=== PATIENT | female | born 1990 | race Caucasian/White ===

== ENCOUNTER → 2020-03-17 12:23 | Outpatient (BNVA) | payer OTHER, SELFPAY | PROVIDERS: PCP Family Medicine; Referring Provider Family Medicine; Visit Provider Obstetrics & Gynecology | DX: Z30.09 Encounter for other general counseling and advice on contraception (principal); Z97.5 Presence of (intrauterine) contraceptive device | CPT/HCPCS: 99212 ==

== ENCOUNTER 2020-04-16 13:36 | Outpatient (REF) | payer OTHER, SELFPAY ==
[2020-04-17 14:18] LABS: CT PCR NOT DETECTED (Not Detect.); NG PCR NOT DETECTED (Not Detect.)
[2020-04-19 09:42] LABS: BV Int Neg Control Negative (Negative); BV Int Pos Control Positive (Positive)
== END 2020-04-16 13:37 | disposition home or self-care (01) ==
LOC: HO.LAB 13:36
PROVIDERS: Visit Provider Obstetrics & Gynecology
DX: T83.32XA Displacement of intrauterine contraceptive device, initial encounter (principal); Z53.8 Procedure and treatment not carried out for other reasons
CPT/HCPCS: 87480; 87491; 87510; 87591; 87660; 99212

== ENCOUNTER 2020-04-20 14:24 | Outpatient (REF) | payer OTHER, SELFPAY ==
--- NOTE | 2020-04-20 14:29 | US_ITS ---
EXAMINATION: PELVIC ULTRASOUND CLINICAL INFORMATION: ENCOUNTER FOR REMOVAL OF IUD COMPARISON: None TECHNIQUE: Transabdominal and transvaginal pelvic ultrasound was performed. Transvaginal exam was performed for better visualization of the IUD. FINDINGS: Uterus is anteverted and measures 8.5 x 3.5 x 4.7 cm in dimension. There is an IUD in the uterus. This appears in satisfactory position however the IUD appears abnormal in shape questionable for a broken IUD or bent or angulated IUD. Follow-up pelvic x-ray is recommended. The endometrium does not appear thickened. No focal uterine lesion is seen. The ovaries are normal-appearing. The right ovary measures 3.1 x 2.4 x 2.1 cm and the left ovary measures 3 x 1.9 x 1.5 cm. There is no fluid in the pelvis. US/US pelvic complete IMPRESSION: IUD in the uterus. The IUD appears abnormal in shape questionable for a broken or bent or angulated IUD. Follow-up pelvic x-ray recommended.
--- NOTE | 2020-04-20 14:29 | US_ITS ---
EXAMINATION: PELVIC ULTRASOUND CLINICAL INFORMATION: ENCOUNTER FOR REMOVAL OF IUD COMPARISON: None TECHNIQUE: Transabdominal and transvaginal pelvic ultrasound was performed. Transvaginal exam was performed for better visualization of the IUD. FINDINGS: Uterus is anteverted and measures 8.5 x 3.5 x 4.7 cm in dimension. There is an IUD in the uterus. This appears in satisfactory position however the IUD appears abnormal in shape questionable for a broken IUD or bent or angulated IUD. Follow-up pelvic x-ray is recommended. The endometrium does not appear thickened. No focal uterine lesion is seen. The ovaries are normal-appearing. The right ovary measures 3.1 x 2.4 x 2.1 cm and the left ovary measures 3 x 1.9 x 1.5 cm. There is no fluid in the pelvis. US/US transvaginal IMPRESSION: IUD in the uterus. The IUD appears abnormal in shape questionable for a broken or bent or angulated IUD. Follow-up pelvic x-ray recommended.
== END 2020-04-20 14:25 | disposition home or self-care (01) ==
LOC: HO.US 14:24
PROVIDERS: Visit Provider Obstetrics & Gynecology
DX: Z30.432 Encounter for removal of intrauterine contraceptive device (principal); T83.32XA Displacement of intrauterine contraceptive device, initial encounter
CPT/HCPCS: 76830; 76856

== ENCOUNTER 2020-05-03 11:11 | Outpatient (REF) | payer OTHER, SELFPAY | END 2020-05-03 11:12 | disposition home or self-care (01) | LOC: HO.LAB 11:11 | PROVIDERS: Visit Provider Obstetrics & Gynecology | DX: T83.32XA Displacement of intrauterine contraceptive device, initial encounter (principal) | CPT/HCPCS: 88142; 99212 ==

== ENCOUNTER → 2020-05-17 11:06 | Outpatient (BNVA) | payer OTHER, SELFPAY | PROVIDERS: Visit Provider Obstetrics & Gynecology | DX: T83.32XD Displacement of intrauterine contraceptive device, subsequent encounter (principal) | CPT/HCPCS: 99212 ==

== ENCOUNTER → 2020-07-06 13:46 | Outpatient (BNVA) | payer OTHER, SELFPAY | PROVIDERS: PCP Internal Medicine; Visit Provider Obstetrics & Gynecology | DX: T83.32XD Displacement of intrauterine contraceptive device, subsequent encounter (principal) | CPT/HCPCS: 99212 ==

== ENCOUNTER 2020-07-08 07:09 | Day surgery (SDC) | payer OTHER, SELFPAY ==
[2020-05-20 19:50] VITALS: BMI 56.7
--- NOTE | 2020-05-26 11:34 | HO.ANESPROP2 ---
HPI - Anesthesia Eval Consult details Narrative: 29yo F for Hysteroscopy, IUD removal PMFSH Past Medical History Medical History Anxiety and depression Back pain History of gestational diabetes Mild intermittent asthma Obesity Family History Family History Mother Asthma Breast cancer Surgical History Surgical History Hx of section Social History Social History Alcohol intake: never Smoking Status: Never smoker Second Hand Smoke Exposure: No Sexual orientation: Straight/Heterosexual Gender identity: female Meds Allergies Allergy/AdvReac Type Severity Reaction Status Date / Time vancomycin [VANCOMYCIN] Allergy Mild ITCHING Verified 05/17/20 11:12 penicillin V Allergy Unknown rash Verified 05/17/20 11:12 Penicillins [PENICILLINS] Allergy Unknown HIVES Verified 05/17/20 11:12 Home Medications Medication Instructions Recorded Confirmed Type copper 380 square mm intrauterine INTRAUTERINE 03/17/20 03/17/20 History device Exam Exam Date and Time: May 26, 2020 1134 Height,Weight and Vital Signs: Height 5 ft 1 in Weight 136.078 kg Assessment and Plan Assessment Anesthesia Assessment: Chart Reviewed
--- NOTE | 2020-07-07 09:19 | HO.ANESPROP2 ---
Documented by User: Bev Hall 07/07/20 09:20 HPI - Anesthesia Eval Consult details Narrative: 29yo F for Hysteroscopy, IUD removal PMFSH Past Medical History Medical History Anxiety and depression Back pain History of gestational diabetes Mild intermittent asthma Obesity Family History Family History Mother Asthma Breast cancer Surgical History Surgical History Hx of section Social History Social History Alcohol intake: never Smoking Status: Never smoker Second Hand Smoke Exposure: No Use of substances other than those prescribed or required for medical reasons: No Advance Directives: No Advance Directives Information Provided: No Advance Directives on File: No Recently lost weight without trying: No Sexual orientation: Straight/Heterosexual Gender identity: female Meds Allergies Allergy/AdvReac Type Severity Reaction Status Date / Time vancomycin [VANCOMYCIN] Allergy Mild ITCHING Verified 07/06/20 14:02 penicillin V Allergy Unknown rash Verified 07/06/20 14:02 Penicillins [PENICILLINS] Allergy Unknown HIVES Verified 07/06/20 14:02 Exam Exam Date and Time: July 07, 2020 0919 Height,Weight and Vital Signs: Height 5 ft 1 in Weight 136.078 kg Assessment and Plan Assessment Anesthesia Assessment: Chart Reviewed Documented by User: Karla Peng 07/08/20 08:46 PMFSH Past Medical History Medical History Anxiety and depression Back pain History of gestational diabetes Mild intermittent asthma Obesity Family History Family History Mother Asthma Breast cancer Surgical History Surgical History Hx of section Social History Social History Alcohol intake: never Smoking Status: Never smoker Second Hand Smoke Exposure: No Use of substances other than those prescribed or required for medical reasons: No Advance Directives: No Advance Directives Information Provided: No Advance Directives on File: No Recently lost weight without trying: No Sexual orientation: Straight/Heterosexual Gender identity: female Meds Allergies Allergy/AdvReac Type Severity Reaction Status Date / Time vancomycin [VANCOMYCIN] Allergy Mild ITCHING Verified 07/06/20 14:02 penicillin V Allergy Unknown rash Verified 07/06/20 14:02 Penicillins [PENICILLINS] Allergy Unknown HIVES Verified 07/06/20 14:02 Exam Airway Mallampati Class: II TM Dist: >3cm Neck ROM: Full Assessment and Plan Assessment Anesthesia Assessment: Anesthesia Plan Discussed and Chart Reviewed Final Anesthetic Review NPO: Yes ASA Class: III Final Preanesthetic Review: No Changes in Pt Med Stat, Meds/Allgs Chart Reviewed, Consent Obtained/Reviewed and Anes Risks/Benef Reviewed Patient Risk: Intermediate Procedure Risk: Low Anesthetic Plan Anesthetic Plan: MAC: Disposition: Standard PACU
[2020-07-08] VITALS (8 sets, daily range): BP systolic 111–143; BP diastolic 61–98; PULSE 75–94; RESP 16–18; TEMP 36.3–36.5; O2SAT 90–98
[2020-07-08 08:11] LABS: UPreg QC Valid YES; Urine Pregnancy NEGATIVE (NEGATIVE)
[2020-07-08] MEDS: Lactated Ringers 1,000 ML 100 ML IVCONT (08:19)
--- NOTE | 2020-07-08 08:43 | MHC.SHP ---
Pre-Procedural Eval Section A The patient is an INPATIENT: No Changes since office visit: No Cold of Flu in the past 2 weeks, No New Medical Problems, No Changes in Medication and No Patient answered all questions The History & Physical has been completed within 30 days and I have reviewed it.: Yes Section B Chief Complaint: IUD string lost Allergies: Allergies Allergy/AdvReac Type Severity Reaction Status Date / Time vancomycin [VANCOMYCIN] Allergy Mild ITCHING Verified 07/06/20 14:02 penicillin V Allergy Unknown rash Verified 07/06/20 14:02 Penicillins [PENICILLINS] Allergy Unknown HIVES Verified 07/06/20 14:02 Plan I have reviewed the history and physical and performed a pertinent physical examination on my patient. No changes have occurred unless specified.
--- NOTE | 2020-07-08 09:41 | W.PM.OPN ---
Operative Note Operative Note Date of Service: 07/08/20 Narrative: Ms. Benedict Dixon is a 29 year old with a Paragard IUD in place (confirmed by ultrasound) with missing strings. She presents today for hysteroscopic IUD removal. Surgical Risks: The patient was informed of the risks and benefits of a hysteroscopy with dilation and curettage. Risks included but were not limited to bleeding, infection, injury to the vulva, vagina, or cervix, and uterine perforation with possible need for further surgery. The patient expressed understanding of the risks involved, all questions were answered, and the patient consented to the procedure. The patient was taken to the operating room where a time out was confirmed to confirm correct patient and correct procedure. Adequate general anesthesia was established. The patient was then positioned on the operating table in the dorsal lithotomy position with her legs supported using stirrups. All pressure points were padded and a warm blanket was placed to maintain control of core body temperature. The patient was then prepped and draped in the usual sterile fashion. A bivalve speculum was then inserted into the vagina. The anterior lip of the cervix was visualized and grasped using a single tooth tenaculum. The cervix was adequately dilated using Garza dilators for the introduction of the hysteroscope. The hysteroscope was introduced under direct visualization using normal saline solution as the distending media. The hysteroscope was advanced and the Paragard IUD was visualized in the cavity with the strings curled around it, entirely within the uterine cavity. An operative hysteroscope was not available in the room and so the hysteroscope was removed and forceps were introduced through the cervix, used to grasp the IUD by the strings and the IUD was removed intact with gentle traction. The single-tooth tenaculum was removed from the anterior lip of the cervix and hemostasis was also noted at the tenaculum puncture sites. The speculum was then removed from the vagina. At the end of the procedure, all needle, sponge, and instrument counts were noted to be correct x2. The patient was transferred to the recovery room in stable condition.
--- NOTE | 2020-07-08 11:11 | HO.POSTANES ---
Post Anesthesia Evaluation Post Anesthesia Evaluation Vital Signs: Vital Signs Temp Pulse Resp BP Pulse Ox 07/08/20 10:38 97.3 F 75 16 114/73 97 07/08/20 10:23 82 18 117/82 97 07/08/20 10:08 81 18 114/62 98 07/08/20 09:53 79 16 111/61 98 07/08/20 09:48 76 18 131/73 96 07/08/20 09:43 85 18 116/66 90 L 07/08/20 09:38 97.3 F 94 16 115/69 94 07/08/20 08:08 97.7 F 81 18 143/98 H 98 Anesthesia: Monitored Mental Status: Awake Pain Control: Satisfactory Nausea/Vomiting: None Hydration: Adequate Anesthesia-Related Issues: No Anes. Related Issues
== END 2020-07-08 11:13 | disposition home or self-care (01) ==
LOC: HO.SSS 07:10
PROVIDERS: Nurse Practitioner; Visit Provider Obstetrics & Gynecology
PROC: 0UDB8ZX Extraction of Endometrium, Via Natural or Artificial Opening Endoscopic, Diagnostic (ICD-10-PCS; CPT 58558; principal; 2020-07-08 08:40)
DX: T83.32XA Displacement of intrauterine contraceptive device, initial encounter (principal); Y76.8 Miscellaneous obstetric and gynecological devices associated with adverse incidents, not elsewhere classified; Y92.9 Unspecified place or not applicable; J45.20 Mild intermittent asthma, uncomplicated; F32.9 Major depressive disorder, single episode, unspecified
CPT/HCPCS: 58301; 81025; J2250; J2405; J3010

== ENCOUNTER → 2020-07-21 11:21 | Outpatient (BNVA) | payer OTHER, SELFPAY | PROVIDERS: Visit Provider Obstetrics & Gynecology ==

== ENCOUNTER 2020-12-02 14:06 | Outpatient (REF) | payer OTHER, SELFPAY ==
--- NOTE | ~2020-12-02 | US_ITS ---
EXAMINATION: US OBSTETRICAL ULTRASOUND CLINICAL INFORMATION: N92.6 - Irregular menstruation, unspecified COMPARISON: None. LMP: Unknown. TECHNIQUE: Ultrasound of the maternal pelvis is performed using transabdominal and transvaginal transducers. Transvaginal imaging is performed due to inadequate visualization transabdominally. M-mode Doppler is also performed. Results initially reported on day of exam. FINDINGS: There is a single intrauterine gestational sac with visible yolk sac, embryo/fetus, and cardiac activity. There is small subchorionic hemorrhage lower aspect measuring only 1.2 x 0.6 x 0.3 cm. HR: 116 beats per minute. CRL (crown rump length): 0.30 cm (6 weeks 0 days +/- 4 days). KARYNA (estimated date of delivery): 07/28/2021 +/- 4 days. MATERNAL ADNEXA: The right maternal ovary measures 2.1 x 1.7 x 2.0 cm. The left maternal ovary measures 1.9 x 1.5 x 1.7 cm. There is no maternal adnexal mass. No maternal pelvic ascites. US/US OB pelvic and transvaginal IMPRESSION: 1. Single intrauterine gestation with ultrasound gestational age of 6 weeks 0 days +/- 4 days. 2. Estimated date of delivery is 07/28/2021 +/- 4 days. 3. Small subchorionic hemorrhage lower aspect only 1.2 x 0.6 x 0.3 cm. 4. No maternal adnexal mass or pelvic ascites.
[2020-12-02 17:26] LABS: HCG Quantitative 24908 mIU/mL
== END 2020-12-02 14:07 | disposition home or self-care (01) ==
LOC: HO.US 14:06
PROVIDERS: Visit Provider Advanced Practice Midwife
DX: N92.6 Irregular menstruation, unspecified (principal); E66.8 Other obesity; Z68.43 Body mass index [BMI] 50.0-59.9, adult
CPT/HCPCS: 36415; 76801; 76817; 81025; 84702; 99212

== ENCOUNTER 2022-07-29 09:53 | Emergency (ER) | payer OTHER, SELFPAY ==
[2022-07-29 10:16] VITALS: BP 103/69; PULSE 118; TEMP 37.5; O2SAT 97
[2022-07-29 11:00] VITALS: BP 103/69; PULSE 118; RESP 16; TEMP 37.5; O2SAT 97; BMI 56.7
[2022-07-29 11:35] LABS: COVID-19 Test Negative (Negative); IDNOW Serial# 6674DD1D
[2022-07-29 11:38] LABS: IDNOW Serial# BCCEAD1C; Influenza A Negative (Negative); Influenza B2 Negative (Negative)
[2022-07-29 11:50] LABS: IDNOW Serial# 6674DD1D; Strep A Nucleic Acid Positive (Negative)
--- NOTE | 2022-07-29 12:22 | PC.NURSE ---
PT WAS SEEN AND DISCHARGED BY PROVIDER
--- NOTE | 2022-07-29 18:31 | ED.URI ---
HPI - URI/Sore Throat General Chief Complaint: Upper Respiratory Symptoms Stated Complaint: sore throat fever ear pain Time Seen by Provider: 07/29/22 10:16 History of Present Illness HPI Narrative: Patient complains of a sore throat for several days, her son had a sore throat before her, she does not have a runny nose or a cough, she may have had fever as she has felt warm intermittently, she has had some intermittent body aches, no headache no stiff neck, it hurts to swallow but she has no difficulty swallowing she has no drooling, she has no chest pain no cough no sputum no shortness of breath no abdominal pain no nausea vomiting or diarrhea no dysuria no frequency no skin rash Related Data Previous Rx's Medication Instructions Recorded prenat.vits,david,[id number] 1 tab PO DAILY plann #90 tabs 03/17/20 acetaminophen 325 mg capsule 650 mg PO Q4H PRN pain #120 caps 07/07/20 ibuprofen 800 mg tablet 800 mg PO Q8H #60 tabs 07/07/20 ferrous sulfate 325 mg (65 mg 325 mg PO BID #120 tabs 07/21/20 iron) tablet acetaminophen 500 mg capsule 1,000 mg PO Q8H PRN fever or pain 07/29/22 #20 caps azithromycin 250 mg tablet See Rx Instructions PO .COMPLEX #6 07/29/22 (Zithromax Z-Romel) tabs ibuprofen 600 mg tablet 600 mg PO Q6H PRN fever or pain 07/29/22 #20 tabs Allergies Allergy/AdvReac Type Severity Reaction Status Date / Time vancomycin [VANCOMYCIN] Allergy Mild ITCHING Verified 12/02/20 14:34 penicillin V Allergy Unknown rash Verified 12/02/20 14:34 Penicillins [PENICILLINS] Allergy Unknown HIVES Verified 12/02/20 14:34 PMFSH Past Medical History Source: nursing notes reviewed Medical History Anxiety and depression Back pain Extreme obesity History of gestational diabetes Mild intermittent asthma Missed menses Obesity Surgical History Hx of section Family History Family History Mother Asthma Breast cancer Social History Social History Alcohol intake: never Second Hand Smoke Exposure: No Advance Directives: No Advance Directives Information Provided: No Sexual orientation: Straight/Heterosexual Gender identity: Female Physical Exam Vital Signs: Vital Signs: Last Vital Signs Temp 99.5 F 07/29/22 11:00 Pulse 118 H 07/29/22 11:00 Resp 16 07/29/22 11:00 BP 103/69 07/29/22 11:00 Pulse Ox 97 07/29/22 11:00 O2 Del Method 07/29/22 11:00 BMI result Body Mass Index 56.7 Pulse of 118 it is noted when I recheck it was 108 General appearance no acute distress comfortable and cooperative The ears are normal with normal tympanic membranes no redness of the membranes, they are intact, canals are patent without any debris or narrowing Eyes no redness or discharge The nose no sinus tenderness The pharynx there is redness, no exudate, mild bilateral symmetric tonsillar swelling, uvula is midline, voice is normal, no drooling, mucous membranes are moist Neck is supple Chest is clear with symmetric equal full breath sounds Heart no murmur Extremities full range of motion x4 Skin no rashes Course Course Course Narrative: Patient was positive for strep, negative for COVID or flu She is treated with steroid and antibiotic, we used Zithromax as she is allergic to penicillin and well-appearing patient tolerating p.o. is discharged Medical Decision Making Lab Data Labs: Lab Results 07/29/22 07/29/22 07/29/22 Range/Units 10:38 10:38 10:38 COVID-19 (BRIANNA) Negative (Negative) COVID-19 Clin Com See Note Influenza Type A (HENRIQUE) Negative (Negative) Influenza Type B (HENRIQUE) Negative (Negative) Influenza A & B Note See Note S. pyogenes GrpA HENRIQUE Positive A (Negative) Discharge Plan Discharge Clinical Impression: Acute streptococcal pharyngitis Patient Disposition: Home, Self-Care Additional Instructions: COVID and flu tests were negative but strep test was positive for both you and your son We are using antibiotic Zithromax You got 1 dose of steroid Decadron which is often very helpful in relieving symptoms within 24 hours Use Tylenol and Motrin as needed Drink plenty of fluids, breathing steam sometimes helps to soothe the throat, warm liquids with honey are often helpful Return any time for dehydration any worse condition or any concerns Prescriptions: New azithromycin [Zithromax Z-Romel] 250 mg tablet See Rx Instructions .ROUTE .COMPLEX Qty: 6 0RF Rx Instructions: For 250 mg dose pack: take 500 mg today (day 1), then 250 mg for 4 days (days 2-5) ibuprofen 600 mg tablet 600 mg PO Q6H PRN (Reason: fever or pain) Qty: 20 0RF acetaminophen 500 mg capsule 1,000 mg PO Q8H PRN (Reason: fever or pain) Qty: 20 0RF No Action ibuprofen 800 mg tablet 800 mg PO Q8H Qty: 60 1RF acetaminophen 325 mg capsule 650 mg PO Q4H PRN (Reason: pain) Qty: 120 0RF Rx Instructions: Take four hours after ibuprofen and continue alternating ferrous sulfate 325 mg (65 mg iron) tablet 325 mg PO BID Qty: 120 3RF prenat.vits,david,jry-[id number] Tablet 1 tab PO DAILY Qty: 90 3RF Discharge Date/Time: 07/29/22 12:20
== END 2022-07-29 12:20 | disposition home or self-care (01) ==
PROVIDERS: Physician Assistant Medical; Emergency Provider Emergency Medicine
DX: J02.0 Streptococcal pharyngitis (principal); Z20.822 Contact with and (suspected) exposure to COVID-19
CPT/HCPCS: 87502; 87635; 87651; 99282; 99283

== ENCOUNTER 2023-10-13 13:54 | Inpatient (IN) | payer OTHER, SELFPAY ==
[2023-10-13] VITALS (8 sets, daily range): BP systolic 134–180; BP diastolic 77–98; PULSE 109–119; RESP 16–32; TEMP 36.6–39.5; O2SAT 91–96; BMI 75.6
--- NOTE | ~2023-10-13 | CT_ITS ---
EXAMINATION: CT ANGIOGRAM OF THE CHEST WITH AND WITHOUT CONTRAST (CT PULMONARY ANGIOGRAM FOR PE) CLINICAL INFORMATION: Reason for Exam hypoxic, tachycardic, SOB COMPARISON: None available. TECHNIQUE: Prior to contrast administration, noncontrast localization images were obtained. Subsequently, multidetector volumetric imaging was performed from the thoracic inlet to below the diaphragms following the administration of 70 mL Omnipaque 350 intravenous contrast. No contrast reaction reported Sagittal, coronal, and MIP oblique sagittal reformatted images were obtained on the CT workstation, uploaded to PACS, and reviewed. This CT examination was performed using dose optimization techniques as appropriate, variously including the following: *Automated exposure control *Adjustment of mA and/or kV according to patient size (this includes techniques or standardized protocols for targeted exams where dose is matched to indication/reason for exam; i.e. extremities or head) *Use of iterative reconstruction technique Total exam dose-length product 556 mGy-cm FINDINGS: QUALITY OF STUDY/CONTRAST BOLUS: Satisfactory. PULMONARY ARTERIES: No pulmonary emboli through the segmental pulmonary arteries. THORACIC AORTA: No aneurysm. LUNG: Central airways patent. Moderate diffuse bronchial wall thickening. Areas of clustered tree-in-bud centrilobular nodularity involving all lobes, most pronounced in the posterior left upper lobe and basilar left lower lobe, where there are patchy areas of more confluent consolidation (series 7, images 168, 329). No dominant, suspicious pulmonary nodules identified. PLEURA: No pleural effusion or pneumothorax. MEDIASTINUM: Normal heart size. No pericardial effusion. Prominent but nonenlarged left lower hilar lymph nodes, measuring up to 1.0 cm in short axis (series 7, image 209), likely reactive. No mediastinal lymphadenopathy. Ovoid, hazy, well-circumscribed fat attenuation structure along the left upper mediastinum abutting the main pulmonary artery, measuring 4.1 x 2.0 x 4.8 cm (series 7, image 137; series 8, image 28). No evidence of septal bowing or right heart strain. CORONARY ARTERY CALCIFICATION: None visualized on this study. CHEST WALL/AXILLA: No axillary or internal mammary lymphadenopathy. OSSEOUS STRUCTURES: No acute or suspicious osseous abnormality. UPPER ABDOMEN: Diffuse hepatic steatosis. Visualized upper abdomen otherwise unremarkable. No reflux of contrast into the hepatic veins to suggest elevated right heart pressures. CT/CT angio chest PE protocol IMPRESSION: 1. No pulmonary emboli through the segmental pulmonary arteries. 2. Findings compatible with multifocal bronchopneumonia/infectious bronchiolitis involving all lobes though most pronounced in the posterior left upper and basilar left lower lobes. 3. Well-circumscribed fat attenuation structure measuring 4.8 cm in the left upper mediastinum, may represent thymic rebound though recommend MRI chest with and without contrast in 3 months after acute illness to assess change and further characterize. 4. Prominent left lower hilar lymph nodes, likely reactive. 5. Diffuse hepatic steatosis. VTE: negative.
--- NOTE | ~2023-10-13 | XR_ITS ---
EXAMINATION: XR CHEST CLINICAL INFORMATION: Cough. Shortness of breath. COMPARISON: None available. TECHNIQUE: 2 views of the chest were obtained. FINDINGS: The cardiac silhouette is slightly enlarged. There is prominence of the left pulmonary hilum and AP window region questionable for lymphadenopathy. There or increased bilateral perihilar markings and airspace disease. No pleural effusion or pneumothorax. Bony structures are unremarkable. XR/XR chest 2V IMPRESSION: Enlarged cardiac silhouette and bilateral perihilar airspace disease. Differential would include pneumonia and pulmonary edema. Prominence of the left pulmonary hilum and AP window region, question lymphadenopathy. Imaging follow-up recommended.
--- NOTE | ~2023-10-13 | CT_ITS ---
EXAMINATION: CT ANGIOGRAM OF THE CHEST WITH AND WITHOUT CONTRAST (CT PULMONARY ANGIOGRAM FOR PE) CLINICAL INFORMATION: Reason for Exam SOB COMPARISON: CTA from 10/13/2023 TECHNIQUE: Prior to contrast administration, noncontrast localization images were obtained. Subsequently, multidetector volumetric imaging was performed from the thoracic inlet to below the diaphragms following the administration of 70 mL Omnipaque 350 intravenous contrast. No contrast reaction reported Sagittal, coronal, and MIP oblique sagittal reformatted images were obtained on the CT workstation, uploaded to PACS, and reviewed. This CT examination was performed using dose optimization techniques as appropriate, variously including the following: *Automated exposure control *Adjustment of mA and/or kV according to patient size (this includes techniques or standardized protocols for targeted exams where dose is matched to indication/reason for exam; i.e. extremities or head) *Use of iterative reconstruction technique Total exam dose-length product 263 mGy-cm FINDINGS: QUALITY OF STUDY/CONTRAST BOLUS: Suboptimal. PULMONARY ARTERIES: No pulmonary emboli within the central main pulmonary arteries bilaterally. Evaluation in the segmental and subsegmental branches is limited due to quality of the bolus, motion artifact and body habitus.. THORACIC AORTA: No aneurysm. LUNG: Diffuse areas of patchy airspace consolidation seen in the bilateral upper lobes and bilateral lower lobes consistent with multifocal pneumonia. Findings have slightly increased compared to the prior exam PLEURA: No pleural effusion or pneumothorax. MEDIASTINUM: Normal heart size. No pericardial effusion. No hilar or mediastinal lymphadenopathy. No evidence of septal bowing or right heart strain. Within the prevascular space in the anterior and superior mediastinum, there is a well-defined ovoid simple fluid density cyst measuring 3.7 x 2.4 cm most consistent with a pericardial cyst. This is unchanged compared to the prior exam. CORONARY ARTERY CALCIFICATION: None visualized on this study. CHEST WALL/AXILLA: No axillary or internal mammary lymphadenopathy. OSSEOUS STRUCTURES: No acute or suspicious osseous abnormality. UPPER ABDOMEN: Unremarkable. No reflux of contrast into the hepatic veins to suggest elevated right heart pressures. CT/CT angio chest PE protocol IMPRESSION: 1. No central main pulmonary artery emboli. Evaluation of the segmental and subsegmental branches is limited due to quality of the bolus, motion artifact and body habitus. 2. Multifocal pneumonia. Slight interval worsening 3. Pericardial cyst. Stable VTE: negative.
--- NOTE | 2023-10-13 14:04 | ED.URI ---
HPI - URI/Sore Throat General Chief Complaint: General Medical Stated Complaint: Headache/Swollen feet\Cough Time Seen by Provider: 10/13/23 14:19 Source: patient Mode of arrival: ambulatory Limitations: no limitations History of Present Illness HPI Narrative: 32 yo female with history of morbid obesity BMI 75, mild intermittent asthma, anxiety, depression who presents to the ER for evaluation of one week of headache, shortness of breath, bilateral lower extremity swelling. patient reports symptoms have been getting worse for the last 1 week. Two of her children are home sick. She states that her lower extremity swelling has been getting worse and she is unable to lay flat in bed, this has been worsening for the last 1 month. She states she has a history of asthma but has been off of her inhalers for the last 12 years. She has a nonsmoker. she reports increased difficulty with ambulation and exertion due to severe SOB. She has some wheezing and dry cough, unable to bring up phlegm. She denies any chest pain but states it is difficult to breathe and her chest feels tight. She denies any abdominal pain, nausea, vomiting, diarrhea, fever. She states her headache is diffuse and throbbing, no improvement with Tylenol and Motrin at home. She is up-to-date on all of her vaccinations. MD elicited complaint: cough and other ( Shortness of breath, lower extremity swelling, headache) Pertinent past history: asthma Onset (ago): week(s) (1) Consistency: progressively worsening Severity: severe Description of mucous: clear Able to tolerate fluids by mouth: Yes Exacerbating factors: exertion and supine positioning Relieving factors: nothing Context: sick contacts Associated symptoms: myalgias, headache, cough and shortness of breath Treatments prior to arrival: acetaminophen and ibuprofen Related Data Home Medications ?Medication ?Instructions ?Recorded ?Confirmed cyanocobalamin (vitamin B-12) 1,000 mcg PO DAILY 10/13/23 10/13/23 1,000 mcg tablet Allergies Allergy/AdvReac Type Severity Reaction Status Date / Time vancomycin [VANCOMYCIN] Allergy Mild ITCHING Verified 10/13/23 14:08 penicillin V Allergy Unknown rash Verified 10/13/23 14:08 Penicillins [PENICILLINS] Allergy Unknown HIVES Verified 10/13/23 14:08 Review of Systems Review of Systems: Yes all other systems are reviewed and are negative [facility] Past Medical History Medical History (Updated 10/13/23 @ 17:36 by sAaf Turner DO) Extreme obesity Missed menses Back pain Obesity History of gestational diabetes Anxiety and depression Mild intermittent asthma Surgical History Hx of section Family History Family History Mother Asthma Breast cancer Social History Social History Household Members: Spouse Housing: House Do you presently have visiting nurse or other home services: No Alcohol intake: never Patient Tobacco Use Status: Never used Tobacco Second Hand Smoke Exposure: No Sexual orientation: Straight/Heterosexual Gender identity: Female Physical Exam Vital Signs: Vital Signs: Last Vital Signs Temp 98.1 F 10/14/23 07:53 Pulse 102 H 10/14/23 07:53 Resp 20 10/14/23 07:53 BP 136/73 10/14/23 07:53 Pulse Ox 93 10/14/23 07:53 O2 Del Method Nasal Cannula 10/14/23 07:53 O2 Flow Rate 2 10/14/23 03:50 BMI result Body Mass Index 75.6 Appearance: Alert. Oriented X3. Moderate respiratory distress after short ambulation w/ increased RR, speaking in 2-3 word sentences Head: normocephalic, atraumatic. Eyes: Pupils equal, round and reactive to light. ENT: Pharynx normal. No tonsillar swelling or exudate. Neck: Normal inspection. Neck supple. CVS: tachycardic, regular rhythm, heart rate low 100s Pulses normal. Respiratory: Moderate respiratory distress, RR high 20s after ambulation. lung sounds coarse throughout without any rales, rhonchi or wheezes. Abdomen: obese,Soft and nontender. +BS x4 Skin: Skin warm and dry. Normal skin color. Normal skin turgor. No rashes. Extremities: 2+ lower extremity edema of the lower legs bilaterally. Neuro/psych: Oriented X 3. No motor deficit. No sensory deficit. CN II-XII intact. Normal speech and cognition. Course Course Course Narrative: This is an RME performed by Eli Baron, REFRACTORY TECHNICIAN: Additional HPI, ROS, PE not included below will be deferred to primary provider. Patient is a 32-year-old female who presents emergency department for evaluation of Cough and shortness of breath for 4 days, constant headache for 3 days, swelling to the bilateral lower extremities left worse than right for 6 days. Son is ill with headache and cough as well. Physical exam: Lung sounds are clear without wheezing, increased work of breath, tachypnea, tachycardic 2+ pitting edema to the bilateral lower extremities Plan: Viral panel, labs, EKG Reevaluation(s) Reevaluation #1: Patient found to be febrile to 103, tachypneic and tachycardic. She is meeting sepsis criteria. Her chest x-ray is abnormal. She is hypoxic to 91% on room air. Will treat for possible community-acquired pneumonia, viral cultures are pending. Antipyretics and IV antibiotics have been ordered. Supplemental oxygen has been ordered. she is going to require admission to the hospital. Time: 15:18 Medications Administered Generic Name Dose Route Start Last Admin Trade Name Freq PRN Reason Stop Dose Admin Amlodipine Besylate 5 mg 10/13/23 22:10 10/13/23 22:14 Amlodipine Besylate 5 Mg Tablet PO 5 mg BEDTIME MACHO Administration Protocol Enoxaparin Sodium 40 mg 10/13/23 17:00 10/13/23 17:46 Enoxaparin Sodium 40 Mg/0.4 Ml Syringe SUBCUT 40 mg Q24H MACHO Administration Ibuprofen 400 mg 10/14/23 04:09 10/14/23 05:05 Ibuprofen 400 Mg Tablet PO 400 mg Q6H PRN Administration Headache Oxycodone HCl 5 mg 10/13/23 16:58 10/14/23 08:22 Oxycodone Hcl Immed Release 5 Mg Tablet PO 5 mg Q6H PRN Administration Pain, Severe (Pain Scale 7-10) Sodium Chloride 3 ml 10/14/23 00:00 10/14/23 08:23 0.9 % Sodium Chloride Flush 3 Ml Syringe IVFLUSH 3 ml QSHIFT MACHO Administration Discontinued Medications Generic Name Dose Route Start Last Admin Trade Name Freq PRN Reason Stop Dose Admin Acetaminophen 975 mg 10/13/23 15:12 10/13/23 15:18 Acetaminophen 325 Mg Tablet PO 10/13/23 15:13 975 mg ONCE ONE Administration Acetaminophen 650 mg 10/13/23 16:58 10/13/23 20:52 Acetaminophen 325 Mg Tablet PO 650 mg Q6H PRN Administration Pain, Mild (Pain Scale 1-3) Furosemide 20 mg 10/13/23 17:31 10/13/23 17:46 Furosemide 20 Mg/2 Ml Vial IVPUSH 10/13/23 17:32 20 mg ONCE ONE Administration Protocol Ceftriaxone Sodium 1 gm/ 50 mls @ 100 mls/hr 10/13/23 15:15 10/13/23 16:45 Sodium Chloride IV 10/13/23 15:44 Infused ONCE ONE Infusion Azithromycin 500 mg/ Sodium 250 mls @ 125 mls/hr 10/13/23 15:15 10/13/23 18:48 Chloride IV 10/13/23 17:14 Infused ONCE ONE Infusion Sodium Chloride 500 mls @ 500 mls/hr 10/13/23 15:45 10/13/23 16:58 Ns IV 10/13/23 16:44 Infused .Q1H MACHO Infusion Iohexol 85 ml 10/13/23 16:07 10/13/23 16:07 Iohexol 350 Mg/Ml 100 Ml Infus..Btl IV 10/13/23 16:08 85 ml ONCE ONE Administration Ketorolac Tromethamine 30 mg 10/13/23 15:27 10/13/23 15:57 Ketorolac Tromethamine 30 Mg/Ml Vial IVPUSH 10/13/23 15:28 30 mg ONCE ONE Administration Ketorolac Tromethamine 30 mg 10/14/23 00:02 10/14/23 00:12 Ketorolac Tromethamine 30 Mg/Ml Vial IVPUSH 10/14/23 00:03 30 mg ONCE ONE Administration Medical Decision Making Medical Decision Making MDM Narrative: 32-year-old female with morbid obesity, BMI of 75, mild intermittent asthma not currently treated presents to the ER for evaluation of shortness of breath, dyspnea on exertion, new lower extremity swelling, headaches, coughing and known sick contacts at home. Patient is visibly dyspneic on arrival with minimal exertion. Once in treatment room patient was found to be febrile to 103. SpO2 91%. Placed on supplemental oxygen. Concern for possible community-acquired pneumonia. IV antibiotics have been ordered. She has not wheezing on examination, hold off on steroids and nebulizer treatment for now. 15:55 - Chest x-ray is abnormal. Pulmonary edema verses bilateral pneumonia. Given her tachycardia, new onset lower extremity swelling, NGO and SOB, CTA has been ordered to rule out PE and better differentiate her abnormal chest x-ray. Patient updated on plan of care. She will require admission to the hospital. Differential Diagnosis Differential Diagnoses: The differential diagnosis associated with the presentation includes COVID, flu, RSV, pneumonia, bronchitis, other viral syndrome, acute heart failure, acute asthma exacerbation, restrictive lung disease, GENE/OHS, pulmonary HTN Admission/Observation Consideration of admission/observation: Escalation of care including admission/observation considered Consult Healthcare Provider Management of the patient was discussed with: Hospitalist Lab Data MDM Lab Attestation statement: I reviewed the patient's lab results. mild leukocytosis similar to prior 10/14/23 06:43 10/14/23 06:43 Labs: Lab Results 10/13/23 10/13/23 Range/Units 14:37 15:41 WBC 11.1 H (4.8-10.8) X10*3/uL RBC 4.00 L (4.20-5.50) X10*6/uL Hgb 12.2 (12.0-16.0) g/dl Hct 35.7 L (37.0-47.0) % MCV 89.3 (80.0-98.0) fL MCH 30.5 (27.0-33.0) pg MCHC 34.2 (31.0-35.0) g/dl RDW 12.8 (11.0-16.0) % Plt Count 365 (160-400) X10*3/uL MPV 9.1 L (9.4-12.3) fL Immature Gran % (Auto) 1.2 H (0.0-0.4) % Neut % (Auto) 85.2 H (45-73) % Lymph % (Auto) 5.2 L (20-40) % [place] % (Auto) 7.6 (2-11) % Eos % (Auto) 0.4 (0-4) % Baso % (Auto) 0.4 (0-2) % Lymph # (Auto) 0.6 L (1.2-4.9) X10*3/uL [place] # (Auto) 0.9 (0.1-1.2) X10*3/uL Eos # (Auto) 0.0 (0.0-0.4) X10*3/uL Baso # (Auto) 0.0 (0.0-0.2) X10*3/uL Abs Immat Gran (auto) 0.13 H (0.00-0.03) X10*3/uL Absolute Neuts (auto) 9.5 H (2.0-8.3) x10*3/uL Absolute Nucleated RBC 0.000 (0.0-0.012) X10*3/uL Nucleated RBC % (auto) 0.0 (0.0-0.2) /100WBC PT 13.3 (11.1-13.3) SEC INR 1.1 (0.9-1.1) Sodium 137 (135-145) mmol/L Potassium 4.0 (3.3-5.1) mmol/L Chloride 105 (96-108) mmol/L Carbon Dioxide 23 (22-29) mmol/L Anion Gap 13 (12-20) BUN 9 (9-16) mg/dL Creatinine 0.87 (0.5-1.4) mg/dL Estim Creat Clear Calc 148.3 Estimated GFR > 60 Random Glucose 127 H (60-115) mg/dL Lactic Acid 1.0 (0.5-2.0) mmol/L Calcium 9.1 (8.4-10.2) mg/dL Total Bilirubin 1.1 H (0.0-1.0) mg/dL AST 13 (5-31) U/L ALT 23 (0-31) U/L Alkaline Phosphatase 79 (39-117) U/L B-Natriuretic Peptide 266 H (<100) pg/mL Total Protein 7.8 (6.5-8.0) g/dL Albumin 3.8 (3.5-5.0) g/dL Influenza Type A (PCR) NEGATIVE (Negative) Influenza Type B (PCR) NEGATIVE (Negative) RSV RNA Qual (PCR) NEGATIVE (Negative) SARS-CoV-2 RNA (RT-PCR) NEGATIVE (Negative) Independent Interpretation I performed an independent interpretation of an: EKG and Plain X-Ray Interpretation: EKG with sinus tachycardia, ventricular rate 116 beats per minute, incomplete right bundle-branch block, normal MO interval, normal QTC not, no ST segment elevations or depressions. No prior EKGs for comparison. Chest x-ray with Cardiomegaly, bilateral infiltrates versus vascular congestion/edema Radiology Impression Discussion of test interpretation with radiology: I have reviewed the radiologist's reading. Radiologist Impression: EXAMINATION: XR CHEST CLINICAL INFORMATION: Cough. Shortness of breath. COMPARISON: None available. TECHNIQUE: 2 views of the chest were obtained. FINDINGS: The cardiac silhouette is slightly enlarged. There is prominence of the left pulmonary hilum and AP window region questionable for lymphadenopathy. There or increased bilateral perihilar markings and airspace disease. No pleural effusion or pneumothorax. Bony structures are unremarkable. XR/XR chest 2V IMPRESSION: Enlarged cardiac silhouette and bilateral perihilar airspace disease. Differential would include pneumonia and pulmonary edema. Prominence of the left pulmonary hilum and AP window region, question lymphadenopathy. Imaging follow-up recommended. External Record Review External record reviewed: Outpatient record, Prior outpatient labs and Prior outpatient radiology Prescription Management I considered prescription management with: Antiviral and Antibiotic Chronic Conditions Patient?s care impacted by: Other ( morbid obesity) Social Determinants Patient?s care significantly limited by Social Determinants of Health including: Other Social Determinant of Health Critical Care Time Critical Care Time Critical Care Time: Yes Total Critical Care Time: 53 Attestation: I have personally provided critical care time exclusive of time spent on separately billable procedures. Time includes review of lab data, radiology results, discussion with consultants, and monitoring for potential decompensation. Intervention performed as documented. Discharge Plan Discharge Clinical Impression: Bilateral edema of lower extremity Sepsis Qualifiers: Sepsis type: sepsis due to unspecified organism Sepsis acute organ dysfunction status: without acute organ dysfunction Qualified Code(s): A41.9 - Sepsis, unspecified organism Pneumonia Qualifiers: Pneumonia type: due to unspecified organism Laterality: bilateral Lung location: unspecified part of lung Qualified Code(s): J18.9 - Pneumonia, unspecified organism Patient Disposition: Admitted As Inpatient Interventions: Admission Worksheet (ED) Last Done: 10/13/23 19:36 Discharge Date/Time: 10/13/23 19:49
--- NOTE | 2023-10-13 14:05 | ECG_ITS ---
Test Reason : TACHYCARDIA Blood Pressure : / mmHG Vent. Rate : 116 BPM Atrial Rate : 116 BPM P-R Int : 146 ms QRS Dur : 092 ms QT Int : 316 ms P-R-T Axes : 023 016 038 degrees QTc Int : 439 ms Sinus tachycardia Incomplete right bundle branch block Cannot rule out Anterior infarct , age undetermined Abnormal ECG No previous ECGs available Referred By: Lauren Baron Electronically Signed By:SORAYA PRUITT
[2023-10-13 14:41] LABS: MANUAL DIFF FLAG NO
[2023-10-13 14:45] LABS: Basophils Percent Auto 0.4 % (0-2); Eosinophils Percent Auto 0.4 % (0-4); Hematocrit 35.7 % (37.0-47.0); Hemoglobin 12.2 g/dl (12.0-16.0); Imm Gran Abs Auto 0.13 X10*3/uL (0.00-0.03); Imm Gran Pct Auto 1.2 % (0.0-0.4); Lymphocytes Absolute Auto 0.6 X10*3/uL (1.2-4.9); Lymphocytes Percent Auto 5.2 % (20-40); Mean Corpuscular HGB Conc 34.2 g/dl (31.0-35.0); Mean Corpuscular Hemoglobin 30.5 pg (27.0-33.0); Mean Corpuscular Volume 89.3 fL (80.0-98.0); Mean Platelet Volume 9.1 fL (9.4-12.3); Monocytes Absolute Auto 0.9 X10*3/uL (0.1-1.2); Monocytes Percent Auto 7.6 % (2-11); Neutrophils Absolute Auto 9.5 x10*3/uL (2.0-8.3); Neutrophils Percent Auto 85.2 % (45-73); Platelet Count 365 X10*3/uL (160-400); Red Cell Distribution Width 12.8 % (11.0-16.0); White Blood Count 11.1 X10*3/uL (4.8-10.8)
[2023-10-13 14:50] LABS: INTERNATIONAL NORM RATIO 1.1 (0.9-1.1); Prothrombin Time 13.3 SEC (11.1-13.3)
[2023-10-13 15:02] LABS: Alanine Aminotransferase 23 U/L (0-31); Albumin Level 3.8 g/dL (3.5-5.0); Alkaline Phosphatase 79 U/L (39-117); Anion Gap 13 (12-20); Aspartate Amino Transferase 13 U/L (5-31); Bilirubin Total 1.1 mg/dL (0.0-1.0); Blood Urea Nitrogen 9 mg/dL (9-16); Calcium 9.1 mg/dL (8.4-10.2); Carbon Dioxide 23 mmol/L (22-29); Chloride 105 mmol/L (96-108); Creatinine Clr Calc Pharmacy 148.3; Estimated Glomerular Filt Rate > 60; Glucose Random 127 mg/dL (60-115); Sodium 137 mmol/L (135-145); Total Protein 7.8 g/dL (6.5-8.0)
[2023-10-13 15:06] LABS: B Type Natriuretic Peptide 266 pg/mL (<100)
[2023-10-13] MEDS: Acetaminophen 325 MG TABLET 975 MG PO (15:18)
[2023-10-13 15:27] LABS: Influenza A PCR NEGATIVE (Negative); Influenza B PCR NEGATIVE (Negative); Resp Syncy Virus RNA Qual PCR NEGATIVE (Negative); SARS COV2 PCR INHOUSE NEGATIVE (Negative)
[2023-10-13] MEDS: 0.9 % Sodium Chloride 500 ML IV (15:53)
[2023-10-13] MEDS: cefTRIAXone sodium 1 GM in 0.9 % Sodium Chloride 50 ML IV (15:57)
[2023-10-13] MEDS: Ketorolac Tromethamine 30 MG/ML VIAL IVPUSH (15:57)
[2023-10-13] MEDS: iohexoL 350 MG/ML 100 ML INFUS..BTL 85 ML IV (16:07)
[2023-10-13] MEDS: Azithromycin 500 MG in 0.9 % Sodium Chloride 250 ML 125 MG IV (16:51)
--- NOTE | 2023-10-13 17:32 | P.HPHOSP_ITS ---
History of Present Illness Date of Service: 10/13/23 Chief Complaint: Shortness of breaths [age] to old female with a history of morbid obesity BMI 75, mild intermittent asthma, anxiety, depression who reports worsening shortness of breath over the last 1 month. She said over the last week symptoms became markedly worse with her inability to lie flat in bed or walk any distance without being short of breath. She currently takes no inhalers for her asthma. Denies diabetes but states she had gestational diabetes with 2 of her children. She is a nonsmoker. She does describe wheezing. Workup in the emergency room including CTA of the chest failed to demonstrate pulmonary emboli however demonstrated multifocal bronchopneumonia involving all lobes most pronounced in the posterior left upper and basal left lower lobes. She was given ceftriaxone and azithromycin and admission was requested Review of Systems 2 Review of Systems: Denies chest pain Admits to shortness of breath that has worsened over the last week; admits to orthopnea and leg swelling. Denies nausea vomiting diarrhea Admits to fever and chills [facility] Medical History (Updated 10/13/23 @ 17:36 by Asaf Turner DO) Extreme obesity Missed menses Back pain Obesity History of gestational diabetes Anxiety and depression Mild intermittent asthma Family History Mother Asthma Breast cancer Surgical History Hx of section Social History Alcohol intake: never Patient Tobacco Use Status: Never used Tobacco Second Hand Smoke Exposure: No Advance Directives: No Advance Directives Information Provided: Yes Nutrition Risks: No Nutritional Risk Sexual orientation: Straight/Heterosexual Gender identity: Female Meds Allergies Allergy/AdvReac Type Severity Reaction Status Date / Time vancomycin [VANCOMYCIN] Allergy Mild ITCHING Verified 10/13/23 14:08 penicillin V Allergy Unknown rash Verified 10/13/23 14:08 Penicillins [PENICILLINS] Allergy Unknown HIVES Verified 10/13/23 14:08 Active Medications: Current Medications Acetaminophen (Acetaminophen 325 Mg Tablet) 650 mg PO Q6H PRN PRN Reason: Pain, Mild (Pain Scale 1-3) Enoxaparin Sodium (Enoxaparin Sodium 40 Mg/0.4 Ml Syringe) 40 mg SUBCUT Q24H MACHO Ceftriaxone Sodium 1 gm/ (Sodium Chloride) 50 mls @ 100 mls/hr IV Q24H [facility] Azithromycin 500 mg/ Sodium (Chloride) 250 mls @ 125 mls/hr IV Q24H [facility] Ondansetron HCl (Ondansetron Hcl 4 Mg/2 Ml Vial) 4 mg IVPUSH Q8H PRN PRN Reason: Nausea and Vomiting Oxycodone HCl (Oxycodone Hcl Immed Release 5 Mg Tablet) 5 mg PO Q6H PRN PRN Reason: Pain, Severe (Pain Scale 7-10) Sodium Chloride (0.9 % Sodium Chloride Flush 3 Ml Syringe) 3 ml IVFLUSH QSHIFT [facility] Physical Exam 2 Vital Signs and Narrative: Vital Signs: Last Vital Signs Temp 98.7 F 10/13/23 16:59 Pulse 110 H 10/13/23 16:59 Resp 20 10/13/23 16:59 BP 147/91 H 10/13/23 16:59 Pulse Ox 96 10/13/23 16:59 O2 Del Method Nasal Cannula 10/13/23 16:59 O2 Flow Rate 3 10/13/23 16:59 BMI result Body Mass Index 75.6 Const: Other: Awake alert able to speak in full sentences Resp: Other: Diffuse coarse rhonchi with crackles along with scattered expiratory wheezes throughout all [place]. Good aeration to bases Cardio: Other: No S4; positive S1-S2; no S3 murmurs rubs or gallops GI: Other: Obese; nontender. Positive bowel sounds x4 Extrem: Other: 2+ edema bilaterally Results Labs 10/13/23 14:37 10/13/23 14:37 Labs: Laboratory Results - last 24 hr 10/13/23 10/13/23 14:37 15:41 MCV 89.3 MCH 30.5 MCHC 34.2 RDW 12.8 Plt Count 365 MPV 9.1 L Immature Gran % (Auto) 1.2 H Neut % (Auto) 85.2 H Lymph % (Auto) 5.2 L [place] % (Auto) 7.6 Eos % (Auto) 0.4 Baso % (Auto) 0.4 Lymph # (Auto) 0.6 L [place] # (Auto) 0.9 Eos # (Auto) 0.0 Baso # (Auto) 0.0 Abs Immat Gran (auto) 0.13 H Absolute Neuts (auto) 9.5 H Absolute Nucleated RBC 0.000 Nucleated RBC % (auto) 0.0 PT 13.3 INR 1.1 Anion Gap 13 Estim Creat Clear Calc 148.3 Estimated GFR > 60 Random Glucose 127 H Lactic Acid 1.0 Calcium 9.1 Total Bilirubin 1.1 H AST 13 ALT 23 Alkaline Phosphatase 79 B-Natriuretic Peptide 266 H Total Protein 7.8 Albumin 3.8 Influenza Type A (PCR) NEGATIVE Influenza Type B (PCR) NEGATIVE RSV RNA Qual (PCR) NEGATIVE SARS-CoV-2 RNA (RT-PCR) NEGATIVE Imaging Radiologist's Impressions: Impressions Chest X-Ray 10/13/23 15:04 IMPRESSION: Enlarged cardiac silhouette and bilateral perihilar airspace disease. Differential would include pneumonia and pulmonary edema. Prominence of the left pulmonary hilum and AP window region, question lymphadenopathy. Imaging follow-up recommended. Chest CTA 10/13/23 16:30 IMPRESSION: 1. No pulmonary emboli through the segmental pulmonary arteries. 2. Findings compatible with multifocal bronchopneumonia/infectious bronchiolitis involving all lobes though most pronounced in the posterior left upper and basilar left lower lobes. 3. Well-circumscribed fat attenuation structure measuring 4.8 cm in the left upper mediastinum, may represent thymic rebound though recommend MRI chest with and without contrast in 3 months after acute illness to assess change and further characterize. 4. Prominent left lower hilar lymph nodes, likely reactive. 5. Diffuse hepatic steatosis. VTE: negative. Assessment and Plan (1) Pneumonia: Qualifiers: Laterality: bilateral Lung location: unspecified part of lung P neumonia type: due to unspecified organism Qualified Code(s): J18.9 - Pneumonia, unspecified organism Status: Acute (2) Sepsis: Qualifiers: Sepsis acute organ dysfunction status: without acute organ dysfunction Sepsis type: sepsis due to unspecified organism Qualified Code(s): A41.9 - Sepsis, unspecified organism Status: Acute (3) Bilateral edema of lower extremity: Status: Acute (4) Mild intermittent asthma: Qualifiers: Asthma complication type: with acute exacerbation Qualified Code(s): J 45.21 - Mild intermittent asthma with (acute) exacerbation Status: Acute Plan 32-year-old female with known history of mild intermittent asthma off inhalers presents with 1 month of worsening shortness of breath that has acutely worsened over the last week. She states she is unable to lay flat in bed in her leg swelling has increased. She also describes sick contacts at home. Workup consistent from bronchial pneumonia 1. Sepsis secondary to bronchial pneumonia -meets sepsis criteria with temperature,respiratory rate and white count; does not qualify for severe sepsis with normal lactate and no end-organ dysfunction -ceftriaxone/azithromycin (1).. Blood cultures pending -supplemental O2; titrate the sats greater than or equal to 92% -DuoNebs q.4 hours while awake as needed -pulse dose methylprednisolone 2. Mild intermittent asthma exacerbation secondary to pneumonia -as above 3.Bilateral edema lower extremities -given 1 dose of Lasix. . . Await response -will check 2D echo given history of worsening shortness of breath over the last month with edema and orthopnea 4. History of gestational diabetes with hyperglycemia on arrival -lispro correctional scale (given steroid administration) -check A1c in a.m. -at therapies as indicated Full code Lovenox Patient will require 2 midnights going forward of inpatient stay for IV antibiotics to treat sepsis secondary to bronchial pneumonia. This can not be achieved a lesser acute setting Quality Stroke Does the patient have a stroke diagnosis?: No VTE Prior VTE?: No VTE Risk Level:: Medical - moderate - high VTE Device Contraindication: Treatment Not Indicated VTE Drug Contraindication: N/A - Med Ordered
[2023-10-13] MEDS: Enoxaparin Sodium 40 MG/0.4 ML SYRINGE SUBCUT (17:46)
[2023-10-13] MEDS: Furosemide 20 MG/2 ML VIAL IVPUSH (17:46)
--- NOTE | 2023-10-13 18:26 | PHA.MEDREC ---
Pharmacy Consult ? Medication Reconciliation Pharmacy has completed the medication reconciliation.
--- NOTE | 2023-10-13 18:49 | PC.NURSE ---
pt placed on 3L n/c d/t o2 sat 90-91% r/a. pt satting mid-high 90s on 3L n/c. 20g iv inserted LAC, abt, fluids done per sepsis protocol.
[2023-10-13] MEDS: 0.9 % Sodium Chloride Flush 3 ML SYRINGE IVFLUSH (20:43)
[2023-10-13 20:48] LABS: Glucose, Whole Blood 105 mg/dL (60-115)
[2023-10-13] MEDS: Acetaminophen 325 MG TABLET 650 MG PO (20:52)
[2023-10-13] MEDS: oxyCODONE HCl Immed Release 5 MG TABLET PO (21:51)
[2023-10-13] MEDS: amLODIPine Besylate 5 MG TABLET PO (22:14)
[2023-10-14] VITALS (8 sets, daily range): BP systolic 112–160; BP diastolic 59–88; PULSE 91–117; RESP 16–20; TEMP 36.7–38.3; O2SAT 93–95
[2023-10-14] MEDS: Ketorolac Tromethamine 30 MG/ML VIAL IVPUSH (00:12)
[2023-10-14] MEDS: Ibuprofen 400 MG TABLET PO ×2 (05:05→13:39)
[2023-10-14 07:28] LABS: MANUAL DIFF FLAG NO
[2023-10-14 07:42] LABS: Basophils Percent Auto 0.5 % (0-2); Hematocrit 35.2 % (37.0-47.0); Hemoglobin 11.5 g/dl (12.0-16.0); Imm Gran Abs Auto 0.09 X10*3/uL (0.00-0.03); Imm Gran Pct Auto 1.2 % (0.0-0.4); Lymphocytes Absolute Auto 0.7 X10*3/uL (1.2-4.9); Mean Corpuscular HGB Conc 32.7 g/dl (31.0-35.0); Mean Corpuscular Hemoglobin 29.9 pg (27.0-33.0); Mean Corpuscular Volume 91.4 fL (80.0-98.0); Mean Platelet Volume 9.5 fL (9.4-12.3); Monocytes Absolute Auto 0.8 X10*3/uL (0.1-1.2); Monocytes Percent Auto 9.8 % (2-11); Neutrophils Absolute Auto 6.1 x10*3/uL (2.0-8.3); Neutrophils Percent Auto 79.5 % (45-73); Platelet Count 339 X10*3/uL (160-400); Red Blood Count 3.85 X10*6/uL (4.20-5.50); Red Cell Distribution Width 13.1 % (11.0-16.0); White Blood Count 7.7 X10*3/uL (4.8-10.8)
[2023-10-14 08:13] LABS: Alanine Aminotransferase 23 U/L (0-31); Albumin Level 3.5 g/dL (3.5-5.0); Alkaline Phosphatase 79 U/L (39-117); Anion Gap 14 (12-20); Aspartate Amino Transferase 16 U/L (5-31); Bilirubin Total 0.7 mg/dL (0.0-1.0); Blood Urea Nitrogen 9 mg/dL (9-16); Calcium 8.9 mg/dL (8.4-10.2); Carbon Dioxide 23 mmol/L (22-29); Chloride 102 mmol/L (96-108); Creatinine Clr Calc Pharmacy 159.4; Estimated Glomerular Filt Rate > 60; Glucose Random 117 mg/dL (60-115); Potassium 3.7 mmol/L (3.3-5.1); Sodium 135 mmol/L (135-145); Total Protein 7.1 g/dL (6.5-8.0)
[2023-10-14 08:18] LABS: Estimated Average Glucose 117 mg/dL; Hemoglobin A1c % 5.7 % (<6.0)
[2023-10-14] MEDS: oxyCODONE HCl Immed Release 5 MG TABLET PO ×2 (08:22→18:06)
[2023-10-14] MEDS: 0.9 % Sodium Chloride Flush 3 ML SYRINGE IVFLUSH ×3 (08:23→20:39)
--- NOTE | 2023-10-14 08:47 | MHC.CM.PN ---
EMR REVIEWED, PT ADMITTED W/MULTIFOCAL PNA, PT REPORTS SHE LIVES W/S.O. AND 4 BOYS, PT IS INDEP W/ALL CARE, DENIES USE OF DME/SERVICES, PT COMPLETED A HCP NAMING HER S.O.LISET HEBERT [phone] HER HCA AND NO ALTERNATE AT THIS TIME, COPY UPLOADED TO [employer] AND PLACED IN CHART. PT REPORTS PCP LISTED IS CORRECT HOWEVER HER NEW PT APPT IS NOT UNTIL DECEMBER, PT COVID VACC X4
--- NOTE | 2023-10-14 12:44 | P.PNIM_ITS ---
Subjective Subjective Date of Service: 10/14/23 Interval History: States slowly improving overnight. Now with appetite. Complains of a tension type headache Review of Systems Denies chest pain Admits to shortness of breath that has worsened over the last week; admits to orthopnea and leg swelling. Denies nausea vomiting diarrhea Admits to fever and chills Physical Exam 2 Vital Signs: Vital Signs: Last Vital Signs Temp 98.3 F 10/14/23 10:54 Pulse 91 10/14/23 10:54 Resp 20 10/14/23 10:54 BP 112/59 L 10/14/23 10:54 Pulse Ox 93 10/14/23 10:54 O2 Del Method Nasal Cannula 10/14/23 10:54 O2 Flow Rate 2 10/14/23 10:54 BMI result Body Mass Index 75.6 Const: Other: Awake alert able to speak in full sentences Resp: Other: Diffuse coarse rhonchi with crackles along with scattered expiratory wheezes throughout all castillo. Good aeration to bases Cardio: Other: No S4; positive S1-S2; no S3 murmurs rubs or gallops GI: Other: Obese; nontender. Positive bowel sounds x4 Extrem: Other: 2+ edema bilaterally Objective Data Active Medications Acetaminophen (Acetaminophen 325 Mg Tablet) 975 mg PO Q6H PRN PRN Reason: mild/modearate pain or headach Amlodipine Besylate (Amlodipine Besylate 5 Mg Tablet) 5 mg PO BEDTIME [facility]; Protocol Last Admin: 10/13/23 22:14 Dose: 5 mg Documented By: ANTONI Enoxaparin Sodium (Enoxaparin Sodium 40 Mg/0.4 Ml Syringe) 40 mg SUBCUT Q24H [facility] Last Admin: 10/13/23 17:46 Dose: 40 mg Documented By: JAYLA Ceftriaxone Sodium 1 gm/ (Sodium Chloride) 50 mls @ 100 mls/hr IV Q24H [facility] Azithromycin 500 mg/ Sodium (Chloride) 250 mls @ 125 mls/hr IV Q24H [facility] Ibuprofen (Ibuprofen 400 Mg Tablet) 400 mg PO Q6H PRN PRN Reason: Headache Last Admin: 10/14/23 05:05 Dose: 400 mg Documented By: ANTONI Ondansetron HCl (Ondansetron Hcl 4 Mg/2 Ml Vial) 4 mg IVPUSH Q8H PRN PRN Reason: Nausea and Vomiting Oxycodone HCl (Oxycodone Hcl Immed Release 5 Mg Tablet) 5 mg PO Q6H PRN PRN Reason: Pain, Severe (Pain Scale 7-10) Last Admin: 10/14/23 08:22 Dose: 5 mg Documented By: DARCIE Sodium Chloride (0.9 % Sodium Chloride Flush 3 Ml Syringe) 3 ml IVFLUSH QSHIFT [facility] Last Admin: 10/14/23 08:23 Dose: 3 ml Documented By: DARCIE Labs 10/14/23 06:43 10/14/23 06:43 Labs: Laboratory Results - last 24 hr 10/13/23 10/13/23 10/13/23 14:37 15:41 20:44 MCV 89.3 MCH 30.5 MCHC 34.2 RDW 12.8 Plt Count 365 MPV 9.1 L Immature Gran % (Auto) 1.2 H Neut % (Auto) 85.2 H Lymph % (Auto) 5.2 L [place] % (Auto) 7.6 Eos % (Auto) 0.4 Baso % (Auto) 0.4 Lymph # (Auto) 0.6 L [place] # (Auto) 0.9 Eos # (Auto) 0.0 Baso # (Auto) 0.0 Abs Immat Gran (auto) 0.13 H Absolute Neuts (auto) 9.5 H Absolute Nucleated RBC 0.000 Nucleated RBC % (auto) 0.0 PT 13.3 INR 1.1 Anion Gap 13 Estim Creat Clear Calc 148.3 Estimated GFR > 60 POC Glucose 105 Random Glucose 127 H Estimat Average Glucose Hemoglobin A1c % Lactic Acid 1.0 Calcium 9.1 Total Bilirubin 1.1 H AST 13 ALT 23 Alkaline Phosphatase 79 B-Natriuretic Peptide 266 H Total Protein 7.8 Albumin 3.8 Influenza Type A (PCR) NEGATIVE Influenza Type B (PCR) NEGATIVE RSV RNA Qual (PCR) NEGATIVE SARS-CoV-2 RNA (RT-PCR) NEGATIVE 10/14/23 06:43 MCV 91.4 MCH 29.9 MCHC 32.7 RDW 13.1 Plt Count 339 MPV 9.5 Immature Gran % (Auto) 1.2 H Neut % (Auto) 79.5 H Lymph % (Auto) 9.0 L [place] % (Auto) 9.8 Eos % (Auto) 0.0 Baso % (Auto) 0.5 Lymph # (Auto) 0.7 L [place] # (Auto) 0.8 Eos # (Auto) 0.0 Baso # (Auto) 0.0 Abs Immat Gran (auto) 0.09 H Absolute Neuts (auto) 6.1 Absolute Nucleated RBC 0.000 Nucleated RBC % (auto) 0.0 PT INR Anion Gap 14 Estim Creat Clear Calc 159.4 Estimated GFR > 60 POC Glucose Random Glucose 117 H Estimat Average Glucose 117 Hemoglobin A1c % 5.7 Lactic Acid Calcium 8.9 Total Bilirubin 0.7 AST 16 ALT 23 Alkaline Phosphatase 79 B-Natriuretic Peptide Total Protein 7.1 Albumin 3.5 Influenza Type A (PCR) Influenza Type B (PCR) RSV RNA Qual (PCR) SARS-CoV-2 RNA (RT-PCR) Assessment and Plan (1) Pneumonia: Status: Acute (2) Mild intermittent asthma: Status: Acute Plan 32-year-old female with known history of mild intermittent asthma off inhalers presents with 1 month of worsening shortness of breath that has acutely worsened over the last week. She states she is unable to lay flat in bed in her leg swelling has increased. She also describes sick contacts at home. Workup consistent from bronchial pneumonia 1. Sepsis secondary to bronchial pneumonia -sepsis resolved -ceftriaxone/azithromycin (2).. Blood cultures pending -supplemental O2; titrate the sats greater than or equal to 92% -DuoNebs q.4 hours while awake as needed -pulse dose methylprednisolone 2. Mild intermittent asthma exacerbation secondary to pneumonia -as above 3.Bilateral edema lower extremities -will check 2D echo given history of worsening shortness of breath over the last month with edema and orthopnea 4. History of gestational diabetes with hyperglycemia on arrival -lispro correctional scale (given steroid administration) -check A1c in a.m. -at therapies as indicated Full code Lovenox Patient will require 2 midnights going forward of inpatient stay for IV antibiotics to treat sepsis secondary to bronchial pneumonia. This can not be achieved a lesser acute setting Quality Stroke Does the patient have a stroke diagnosis?: No VTE Prior VTE?: No VTE Risk Level:: Medical - moderate - high VTE Device Contraindication: Treatment Not Indicated VTE Drug Contraindication: N/A - Med Ordered
[2023-10-14] MEDS: Butalb/Acetamin/Caff 50/325/40 TABLET 1 TAB PO ×3 (15:29→23:33)
[2023-10-14] MEDS: cefTRIAXone sodium 1 GM in 0.9 % Sodium Chloride 50 ML IV (15:32)
[2023-10-14] MEDS: Azithromycin 500 MG in 0.9 % Sodium Chloride 250 ML 125 MG IV (16:00)
[2023-10-14] MEDS: Enoxaparin Sodium 40 MG/0.4 ML SYRINGE SUBCUT (17:51)
[2023-10-14] MEDS: amLODIPine Besylate 5 MG TABLET PO (20:34)
[2023-10-15] VITALS (7 sets, daily range): BP systolic 129–163; BP diastolic 70–88; PULSE 92–102; RESP 16–20; TEMP 36.3–38.2; O2SAT 91–94
[2023-10-15] MEDS: Acetaminophen 325 MG TABLET 975 MG PO (01:17)
[2023-10-15] MEDS: Butalb/Acetamin/Caff 50/325/40 TABLET 1 TAB PO ×4 (06:35→20:53)
--- NOTE | 2023-10-15 07:00 | CA_ITS ---
Transthoracic Echocardiogram Patient (Last, First, Middle): Kylah Chun, Gender: Female Date of : 1990 Age: 32 Procedure Date: 10/15/2023 Procedure Type: Transthoracic Echocardiogram Location: S3E Height: 154.94 cm Weight: 181.44 kg BSA: 2.54 m2 Heart Rate: 94 bpm BP: 121 / 65 mmHg [employer] Operator: Referring MD: Asaf Turner DO Symptoms: edema Study Quality: Adequate w/Contrast ECG Rhythm: Sinus Conclusions: - Normal left ventricular cavity size. There is moderately increased left ventricular wall thickness. The left ventricular systolic function is hyperdynamic. The visually estimated ejection fraction is >70%. - Normal right ventricular cavity size and systolic function. - Hyperdynamic LV function and mild gradient across the aortic valve. 2-D assessment of aortic valve is limited but no obvious calcification/thickening of the valve noted. Gradient probably due to hyperdynamic state. Findings Procedure Information Contrast agent, definity, is being given per protocol without apparent complications. Left Ventricle Normal left ventricular cavity size. There is moderately increased left ventricular wall thickness. The left ventricular systolic function is hyperdynamic. The visually estimated ejection fraction is >70%. There is no evidence of regional wall motion abnormalities. Diastolic function is normal for age. Right Ventricle Normal right ventricular cavity size and systolic function. Atria The left atrium is normal in size. Aortic Valve The aortic valve was not well visualized. The peak aortic velocity is 2.78 m/s. The mean gradient is 17 mmHg. There is no aortic valve regurgitation. Hyperdynamic LV function and mild gradient across the aortic valve. 2-D assessment of aortic valve is limited but no obvious calcification/thickening of the valve noted. Gradient probably due to hyperdynamic state. Mitral Valve The mitral valve appears normal. There is no mitral valve regurgitation. There is no mitral valve stenosis. Pulmonic Valve The pulmonic valve is likely normal. Tricuspid Valve Normal tricuspid valve structure. There is no tricuspid valve regurgitation. Normal right atrial pressure. There is no evidence of pulmonary hypertension. Great Vessels All visible segments of the aorta are normal in size. The visualized portions of the pulmonary artery and branches are normal. Venous The inferior vena cava is normal in size and collapses greater than 50% with inspiration. Pericardium/Pleural There is no evidence of pericardial effusion. Prior Study Comparison No prior study available for comparison. Measurements 2D Linear Measurements IVSd: 1.28 0.6-0.9/0.6-1.0 cm LVIDd: 4.11 3.9-5.3/4.2-5.9 cm LVIDd Index: 1.62 2.4-3.2/2.2-3.1 cm/m2 LVIDs: 2.73 2.0-3.6 cm LVPWd: 1.24 0.7-1.1 cm LA Diam: 4.50 2.7-3.8/3.0-4.0 cm LAIDs Index: 1.77 1.5-2.3 cm/m2 LV Mass: 230.89 67-162/88-224 g LV Mass Index: 90.90 43-95/49-115 g/m2 LVOT Diam: 1.90 3.0+(-)1.3 cm Mitral Valve MV Pk E: 1.17 MV PK A: 1.07 MV Decel Time: 165.00 E/A: 1.10 E'Lateral: 9.68 E'Medial: 7.62 E/E' Med: 15.40 E/E' Lat: 12.10 PHT: 48.00 MVA PHT: 4.58 Decel [place]: 7.09 Aortic Valve AoV Pk Nam: 2.78 AoV Mn Nam: 1.88 AoV VTI: 0.52 AoV Pk Grad: 31.00 Aov Mn Grad: 17.00 MONISHA Cont.VTI: 1.36 LVOT LVOT Pk Nam: 1.37 LVOT Mn Nam: 0.99 LVOT VTI: 0.25 LVOT Pk Grad: 8.00 LVOT Mn Grad: 4.00 LVOT Diam: 1.90 LVOT Area: 2.84 Diastolic Function MV Pk E: 1.17 MV Pk A: 1.07 E/A: 1.10 E'Medial: 7.62 E/E' Med: 15.40 E' Laterial: 9.68 E/E' Lat: 12.10 Right Ventricle TAPSE (mm): 34.30 TVS' Nam: 18.60 Tricuspid Valve TR Pk Nam: 1.41 TR Pk Grad: 8.00 Great Vessels Aorta Sinus of Valsalva: 2.50 2.0-3.5 cm Ao Asc: 2.90 2.1-3.4 cm Pulmonary Valve PV Pk Nam: 1.32 Peak PV Grad: 7.00 Updated in Other Vendor System with Status of Final Iker Jackson MD electronically signed on 10/16/2023 11:39:10 AM with status of Final
[2023-10-15] MEDS: 0.9 % Sodium Chloride Flush 3 ML SYRINGE IVFLUSH ×3 (08:03→19:24)
[2023-10-15] MEDS: Furosemide 40 MG/4 ML VIAL IVPUSH (10:51)
--- NOTE | 2023-10-15 12:09 | P.PNIM_ITS ---
Subjective Subjective Date of Service: 10/15/23 Interval History: Continues to be short of breath with O2 requirement. Continues to state she can not lay flat to breathe. T-max 101 degree Review of Systems Denies chest pain Admits to shortness of breath that has worsened over the last week; admits to orthopnea and leg swelling. Denies nausea vomiting diarrhea Admits to fever and chills Physical Exam 2 Vital Signs: Vital Signs: Last Vital Signs Temp 97.4 F 10/15/23 07:41 Pulse 95 10/15/23 07:41 Resp 18 10/15/23 07:41 BP 129/74 10/15/23 07:41 Pulse Ox 94 10/15/23 07:41 O2 Del Method Nasal Cannula 10/15/23 07:41 O2 Flow Rate 2.0 10/15/23 07:41 BMI result Body Mass Index 75.6 Const: Other: Awake alert able to speak in full sentences Resp: Other: Diffuse coarse rhonchi with crackles along with scattered expiratory wheezes throughout all castillo. Good aeration to bases Cardio: Other: No S4; positive S1-S2; no S3 murmurs rubs or gallops GI: Other: Obese; nontender. Positive bowel sounds x4 Extrem: Other: 2+ edema bilaterally Objective Data Active Medications Acetaminophen (Acetaminophen 325 Mg Tablet) 975 mg PO Q6H PRN PRN Reason: mild/modearate pain or headach Last Admin: 10/15/23 01:17 Dose: 975 mg Documented By: DELANEY Acetaminophen/Butalbital/Caffeine (Butalb/Acetamin/Caff 50/325/40 Tablet) 1 tab PO Q4H PRN PRN Reason: Headache Last Admin: 10/15/23 10:55 Dose: 1 tab Documented By: ARTEMIO Amlodipine Besylate (Amlodipine Besylate 5 Mg Tablet) 5 mg PO BEDTIME [facility]; Protocol Last Admin: 10/14/23 20:34 Dose: 5 mg Documented By: DELANEY Enoxaparin Sodium (Enoxaparin Sodium 40 Mg/0.4 Ml Syringe) 40 mg SUBCUT Q24H [facility] Last Admin: 10/14/23 17:51 Dose: 40 mg Documented By: ISHA Ceftriaxone Sodium 1 gm/ (Sodium Chloride) 50 mls @ 100 mls/hr IV Q24H [facility] Last Infusion: 10/14/23 16:05 Dose: Infused Documented By: ISHA Azithromycin 500 mg/ Sodium (Chloride) 250 mls @ 125 mls/hr IV Q24H [facility] Last Infusion: 10/14/23 18:06 Dose: Infused Documented By: ISHA Ondansetron HCl (Ondansetron Hcl 4 Mg/2 Ml Vial) 4 mg IVPUSH Q8H PRN PRN Reason: Nausea and Vomiting Oxycodone HCl (Oxycodone Hcl Immed Release 5 Mg Tablet) 5 mg PO Q6H PRN PRN Reason: Pain, Severe (Pain Scale 7-10) Last Admin: 10/14/23 18:06 Dose: 5 mg Documented By: ISHA Sodium Chloride (0.9 % Sodium Chloride Flush 3 Ml Syringe) 3 ml IVFLUSH QSHIFT [facility] Last Admin: 10/15/23 08:03 Dose: 3 ml Documented By: GRAZIC Labs 10/14/23 06:43 10/14/23 06:43 Microbiology Microbiology Results: Microbiology 10/13/23 15:49 Blood Culture - Preliminary Blood - Venous No growth after 24 hours. 10/13/23 15:41 Blood Culture - Preliminary Blood - Venous No growth after 24 hours. Assessment and Plan (1) Pneumonia: Status: Acute (2) Mild intermittent asthma: Status: Acute Plan 32-year-old female with known history of mild intermittent asthma off inhalers presents with 1 month of worsening shortness of breath that has acutely worsened over the last week. She states she is unable to lay flat in bed in her leg swelling has increased. She also describes sick contacts at home. Workup consistent from bronchial pneumonia 1. Sepsis secondary to bronchial pneumonia -sepsis resolved -ceftriaxone/azithromycin (3).. Blood cultures pending -supplemental O2; titrate the sats greater than or equal to 92% -DuoNebs q.4 hours while awake as needed -check 2D echo -repeat CTA of chest 2. Mild intermittent asthma exacerbation secondary to pneumonia -as above 3.Bilateral edema lower extremities -will check 2D echo given history of worsening shortness of breath over the last month with edema and orthopnea 4. History of gestational diabetes with hyperglycemia on arrival -lispro correctional scale (given steroid administration) -check A1c in a.m. -at therapies as indicated Full code Lovenox Patient will require 2 midnights going forward of inpatient stay for IV antibiotics to treat sepsis secondary to bronchial pneumonia. This can not be achieved a lesser acute setting Quality Stroke Does the patient have a stroke diagnosis?: No VTE Prior VTE?: No VTE Risk Level:: Medical - moderate - high VTE Device Contraindication: Treatment Not Indicated VTE Drug Contraindication: N/A - Med Ordered
[2023-10-15] MEDS: iohexoL 350 MG/ML 100 ML INFUS..BTL IV (12:12)
--- NOTE | 2023-10-15 13:15 | MHC.CM.PN ---
per rounds pt is not medically cleare for dc she is to have an echo and still has a fever
[2023-10-15] MEDS: oxyCODONE HCl Immed Release 5 MG TABLET PO ×2 (13:54→23:57)
[2023-10-15] MEDS: guaiFEN/Codeine SF 200/20/10ML 10 ML LIQUID PO ×3 (14:01→22:11)
[2023-10-15] MEDS: cefTRIAXone sodium 1 GM in 0.9 % Sodium Chloride 50 ML IV (15:51)
[2023-10-15] MEDS: Azithromycin 500 MG in 0.9 % Sodium Chloride 250 ML 125 MG IV (16:25)
[2023-10-15] MEDS: Enoxaparin Sodium 40 MG/0.4 ML SYRINGE SUBCUT (16:28)
[2023-10-15] MEDS: amLODIPine Besylate 5 MG TABLET PO (20:50)
[2023-10-15] MEDS: Albuterol/Iprat 2.5/0.5MG 3 ML AMPUL.NEB INHALE (20:54)
[2023-10-16] MEDS: Albuterol/Iprat 2.5/0.5MG 3 ML AMPUL.NEB INHALE ×3 (01:33→14:27)
[2023-10-16 01:35] VITALS: PULSE 94; RESP 20; O2SAT 90
[2023-10-16] MEDS: guaiFEN/Codeine SF 200/20/10ML 10 ML LIQUID PO ×3 (04:08→14:08)
[2023-10-16] MEDS: Butalb/Acetamin/Caff 50/325/40 TABLET 1 TAB PO ×4 (04:21→23:40)
[2023-10-16 05:36] VITALS: PULSE 91; RESP 20; O2SAT 91
[2023-10-16 07:34] VITALS: BP 124/60; PULSE 94; RESP 19; TEMP 36.8; O2SAT 92
[2023-10-16] MEDS: 0.9 % Sodium Chloride Flush 3 ML SYRINGE IVFLUSH ×3 (08:38→23:36)
[2023-10-16] MEDS: oxyCODONE HCl Immed Release 5 MG TABLET PO ×2 (10:59→19:37)
[2023-10-16 14:30] VITALS: PULSE 94; RESP 19; O2SAT 95
[2023-10-16] MEDS: guaiFENesin DM 200/20/10 ML 10 ML SYRUP PO ×2 (14:48→19:38)
[2023-10-16] MEDS: cefTRIAXone sodium 1 GM in 0.9 % Sodium Chloride 50 ML IV (15:06)
[2023-10-16 15:23] VITALS: BP 135/76; PULSE 93; RESP 20; TEMP 36.6; O2SAT 92
--- NOTE | 2023-10-16 15:52 | P.PNIM_ITS ---
Subjective Subjective Date of Service: 10/16/23 Interval History: Complaining of shortness of breath, leg edema, orthopnea, dyspnea on exertion > 1 month , cough,tolerating diet no nausea, no vomiting, no abdominal pain, denies chest pain, no palpitations, not on home oxygen, feels leg edema has resolved since hospitalization. Had fever yesterday afternoon, denies fever chills this morning. Review of Systems All other system reviewed and negative Physical Exam 2 Vital Signs: Vital Signs: Last Vital Signs Temp 98 F 10/16/23 15:23 Pulse 93 10/16/23 15:23 Resp 20 10/16/23 15:23 BP 135/76 10/16/23 15:23 Pulse Ox 92 10/16/23 15:23 O2 Del Method Nasal Cannula 10/16/23 15:23 O2 Flow Rate 3 10/16/23 15:23 BMI result Body Mass Index 75.6 Const: Other: General awake alert x3 in no acute distress. Neck supple, no JVD. CVS regular rate rhythm, Respiratory lungs diminished, clear to auscultation, no respiratory distress, no wheeze, no rhonchi. Gastrointestinal abdomen soft, non tender, bowel sounds audible, no guarding , no rigidity. Extremities no pitting edema. Neuro non focal Skin no rash Psych appropriate affect Objective Data Active Medications Acetaminophen (Acetaminophen 325 Mg Tablet) 975 mg PO Q6H PRN PRN Reason: mild/modearate pain or headach Last Admin: 10/15/23 01:17 Dose: 975 mg Documented By: DELANEY Acetaminophen/Butalbital/Caffeine (Butalb/Acetamin/Caff 50/325/40 Tablet) 1 tab PO Q4H PRN PRN Reason: Headache Last Admin: 10/16/23 14:51 Dose: 1 tab Documented By: ARTEMIO Albuterol/Ipratropium (Albuterol/Iprat 2.5/0.5mg 3 Ml Ampul.Neb) 3 ml INHALE Q4H PRN PRN Reason: Wheezing Last Admin: 10/16/23 14:27 Dose: 3 ml Documented By: SHERRY Amlodipine Besylate (Amlodipine Besylate 5 Mg Tablet) 5 mg PO BEDTIME [facility]; Protocol Last Admin: 10/15/23 20:50 Dose: 5 mg Documented By: DELANEY Enoxaparin Sodium (Enoxaparin Sodium 40 Mg/0.4 Ml Syringe) 40 mg SUBCUT Q24H [facility] Last Admin: 10/15/23 16:28 Dose: 40 mg Documented By: ARTEMIO Guaifenesin/Codeine Phosphate (Guaifen/Codeine Sf 200/20/10ml 10 Ml Liquid) 10 ml PO Q4H PRN PRN Reason: Cough Last Admin: 10/16/23 14:08 Dose: 10 ml Documented By: ARTEMIO Guaifenesin/Dextromethorphan (Guaifenesin Dm 200/20/10 Ml 10 Ml Syrup) 10 ml PO TID [facility] Last Admin: 10/16/23 14:48 Dose: 10 ml Documented By: ARTEMIO Ceftriaxone Sodium 1 gm/ (Sodium Chloride) 50 mls @ 100 mls/hr IV Q24H [facility] Last Infusion: 10/16/23 15:40 Dose: Infused Documented By: ARTEMIO Azithromycin 500 mg/ Sodium (Chloride) 250 mls @ 125 mls/hr IV Q24H [facility] Last Infusion: 10/15/23 18:27 Dose: Infused Documented By: ARTEMIO Ondansetron HCl (Ondansetron Hcl 4 Mg/2 Ml Vial) 4 mg IVPUSH Q8H PRN PRN Reason: Nausea and Vomiting Oxycodone HCl (Oxycodone Hcl Immed Release 5 Mg Tablet) 5 mg PO Q6H PRN PRN Reason: Pain, Severe (Pain Scale 7-10) Last Admin: 10/16/23 10:59 Dose: 5 mg Documented By: ARTEMIO Sodium Chloride (0.9 % Sodium Chloride Flush 3 Ml Syringe) 3 ml IVFLUSH QSHIFT [facility] Last Admin: 10/16/23 08:38 Dose: 3 ml Documented By: ARTEMIO Labs 10/14/23 06:43 10/14/23 06:43 Microbiology Microbiology Results: Microbiology 10/13/23 15:49 Blood Culture - Preliminary Blood - Venous No growth after 48 hours. 10/13/23 15:41 Blood Culture - Preliminary Blood - Venous No growth after 48 hours. Assessment and Plan (1) Pneumonia: Status: Acute (2) Mild intermittent asthma: Status: Acute Plan 32-year-old female with known history of mild intermittent asthma off inhalers presents with 1 month of worsening shortness of breath that has acutely worsened over the last week. She states she is unable to lay flat in bed in her leg swelling has increased. She also describes sick contacts at home. Workup consistent from bronchial pneumonia 1. Sepsis secondary to multifocal bronchial pneumonia. -sepsis resolved -on iv ceftriaxone/azithromycin d3, Blood cultures no growth -continue O2 support titrate as tolerated -DuoNebs q.4 hours while awake as needed -2D echo showed hyperdynamic left ventricular function EF greater than 70, normal diastolic function, no evidence of regional wall motion abnormality, moderately increased left ventricular wall thickness, l Hyperdynamic state question related to sepsis -repeat CTA of chest showed no PE, but showed multi focal pneumonia with slight interval worsening, stable pericardial cyst. -as per patient history of sleep apnea was given 3 day trial of CPAP patient was unable to tolerate, likely symptoms related to obesity hypoventilation syndrome,will consult pulmonology. 2. Mild intermittent asthma exacerbation secondary to pneumonia. - resolved, continue updraft as needed, cough medication and azithromycin 3.Bilateral edema lower extremities -no evidence of CHF, likely venous insufficiency , recommend weight reduction 4. History of gestational diabetes with hyperglycemia on arrival -is stable blood sugars, will discontinue lispro correctional scale (given steroid administration) -A1c 5.7 5. Morbid obesity counseling done, recommend low-calorie diet and weight reduction Full code Lovenox Patient will require continued inpatient for IV antibiotics to treat sepsis secondary to bronchial pneumonia. This can not be achieved a lesser acute setting. Quality Stroke Does the patient have a stroke diagnosis?: No VTE Prior VTE?: No VTE Risk Level:: Medical - moderate - high VTE Device Contraindication: Treatment Not Indicated VTE Drug Contraindication: N/A - Med Ordered
[2023-10-16] MEDS: Azithromycin 500 MG in 0.9 % Sodium Chloride 250 ML 125 MG IV (16:08)
[2023-10-16] MEDS: Enoxaparin Sodium 40 MG/0.4 ML SYRINGE SUBCUT (17:13)
[2023-10-16] MEDS: amLODIPine Besylate 5 MG TABLET PO (19:38)
[2023-10-16 23:24] VITALS: BP 141/81; PULSE 97; RESP 20; TEMP 36.6; O2SAT 93
[2023-10-17] MEDS: oxyCODONE HCl Immed Release 5 MG TABLET PO ×2 (01:13→15:08)
[2023-10-17] MEDS: Butalb/Acetamin/Caff 50/325/40 TABLET 1 TAB PO ×4 (04:47→19:20)
[2023-10-17] MEDS: guaiFEN/Codeine SF 200/20/10ML 10 ML LIQUID PO ×2 (04:48→13:04)
[2023-10-17 07:48] VITALS: BP 130/80; PULSE 88; RESP 18; TEMP 36.2; O2SAT 94
[2023-10-17] MEDS: guaiFENesin DM 200/20/10 ML 10 ML SYRUP PO ×3 (08:35→20:24)
[2023-10-17] MEDS: 0.9 % Sodium Chloride Flush 3 ML SYRINGE IVFLUSH ×3 (08:36→20:24)
--- NOTE | 2023-10-17 12:03 | P.CONCA_ITS ---
History of Present Illness History of Present Illness Date of Service: 10/17/23 Requesting physician: Med Willams Chief complaint: Pneumonia, orthopnea Narrative: 32-year-old female who is presenting with shortness of breath ongoing for few weeks. She also complained of orthopnea. She is overweight and has snoring at night and underlying undiagnosed sleep apnea. She had echocardiography performed which showed hyperdynamic left ventricular function with mild gradient across the aortic valve although the aortic valve did not appear thickened or calcified. She is saying with antibiotics she is improving slowly. She has insomnia from very young age and does not sleep at night. She is saying that her partner and son has noticed that she snores heavily at night. She never had sleep study in the past. She has some mild peripheral edema. Imaging has shown multifocal pneumonia. Her BNP was mildly elevated. Central PE was ruled out but subsegmental vascular assessment was limited on CTA. [facility] Past Medical History Medical History (Updated 10/13/23 @ 17:36 by sAaf Turner DO) Extreme obesity Missed menses Back pain Obesity History of gestational diabetes Anxiety and depression Mild intermittent asthma Family History Family History Mother Asthma Breast cancer Surgical History Surgical History Hx of section Social History Social History Household Members: Spouse Housing: House Do you presently have visiting nurse or other home services: No Alcohol intake: never Patient Tobacco Use Status: Never used Tobacco Second Hand Smoke Exposure: No service: No Sexual orientation: Straight/Heterosexual Gender identity: Female Meds Allergies Allergy/AdvReac Type Severity Reaction Status Date / Time vancomycin [VANCOMYCIN] Allergy Mild ITCHING Verified 10/13/23 14:08 penicillin V Allergy Unknown rash Verified 10/13/23 14:08 Penicillins [PENICILLINS] Allergy Unknown HIVES Verified 10/13/23 14:08 Active Medications: Current Medications Acetaminophen (Acetaminophen 325 Mg Tablet) 975 mg PO Q6H PRN PRN Reason: mild/modearate pain or headach Last Admin: 10/15/23 01:17 Dose: 975 mg Acetaminophen/Butalbital/Caffeine (Butalb/Acetamin/Caff 50/325/40 Tablet) 1 tab PO Q4H PRN PRN Reason: Headache Last Admin: 10/17/23 09:01 Dose: 1 tab Albuterol/Ipratropium (Albuterol/Iprat 2.5/0.5mg 3 Ml Ampul.Neb) 3 ml INHALE Q4H PRN PRN Reason: Wheezing Last Admin: 10/16/23 14:27 Dose: 3 ml Amlodipine Besylate (Amlodipine Besylate 5 Mg Tablet) 5 mg PO BEDTIME [facility]; Protocol Last Admin: 10/16/23 19:38 Dose: 5 mg Enoxaparin Sodium (Enoxaparin Sodium 40 Mg/0.4 Ml Syringe) 40 mg SUBCUT Q24H [facility] Last Admin: 10/16/23 17:13 Dose: 40 mg Guaifenesin/Codeine Phosphate (Guaifen/Codeine Sf 200/20/10ml 10 Ml Liquid) 10 ml PO Q4H PRN PRN Reason: Cough Last Admin: 10/17/23 04:48 Dose: 10 ml Guaifenesin/Dextromethorphan (Guaifenesin Dm 200/20/10 Ml 10 Ml Syrup) 10 ml PO TID [facility] Last Admin: 10/17/23 08:35 Dose: 10 ml Ceftriaxone Sodium 1 gm/ (Sodium Chloride) 50 mls @ 100 mls/hr IV Q24H [facility] Last Infusion: 10/16/23 15:40 Dose: Infused Azithromycin 500 mg/ Sodium (Chloride) 250 mls @ 125 mls/hr IV Q24H [facility] Last Infusion: 10/16/23 18:13 Dose: Infused Ondansetron HCl (Ondansetron Hcl 4 Mg/2 Ml Vial) 4 mg IVPUSH Q8H PRN PRN Reason: Nausea and Vomiting Oxycodone HCl (Oxycodone Hcl Immed Release 5 Mg Tablet) 5 mg PO Q6H PRN PRN Reason: Pain, Severe (Pain Scale 7-10) Last Admin: 10/17/23 01:13 Dose: 5 mg Sodium Chloride (0.9 % Sodium Chloride Flush 3 Ml Syringe) 3 ml IVFLUSH QSHIFT [facility] Last Admin: 10/17/23 08:36 Dose: 3 ml Home Medications ?Medication ?Instructions ?Recorded ?Confirmed ?Last Taken ?Type cyanocobalamin (vitamin B-12) 1,000 mcg PO DAILY 10/13/23 10/13/23 4 Days Ago History 1,000 mcg tablet ~10/09/23 Physical Exam 2 Vital Signs: Vital Signs: Last Vital Signs Temp 97.2 F 10/17/23 07:48 Pulse 88 10/17/23 07:48 Resp 18 10/17/23 07:48 BP 130/80 10/17/23 07:48 Pulse Ox 94 10/17/23 07:48 O2 Del Method Nasal Cannula 10/17/23 07:48 O2 Flow Rate 4 10/17/23 07:48 BMI result Body Mass Index 75.6 GENERAL APPEARANCE: in no acute distress, obese. On supplemental oxygen. NECK: no carotid bruit, mild jugular venous distention. SKIN: no suspicious lesions, warm and dry. HEART: no murmurs, regular rate and rhythm. LUNGS: Crackles at bases with mild expiratory wheeze. ABDOMEN: soft, nontender. EXTREMITIES: Mild edema. PERIPHERAL PULSES: equal. NEUROLOGIC: No gross deficits, AAO X 3 Objective Labs and Meds 10/14/23 06:43 10/14/23 06:43 Assessment and Plan (1) Pneumonia: Qualifiers: Laterality: bilateral Lung location: unspecified part of lung P neumonia type: due to unspecified organism Qualified Code(s): J18.9 - Pneumonia, unspecified organism Status: Acute (2) Bilateral edema of lower extremity: Status: Acute Plan Pleasant 32-year-old female presenting with shortness of breath and multifocal pneumonia. Echocardiography has shown hyperdynamic LV with mild gradient across aortic valve. In the setting of infection hyperdynamic LV function is not unusual. I do not think there is any true valvular dysfunction and gradient is just because of hyperdynamic state. Other reasons for hyperdynamic state are hyperthyroidism, anemia and in her age group. She has mild edema and mild JVD. Low-dose diuretics can be tried to see if edema improves but I doubt that it will make a significant difference in her shortness of breath. We will follow along with you. Thank you for allowing me to participate in the care of your patient. Please feel free to contact me if you have any questions. Procedures Date of Service Date of Service: 10/17/23
--- NOTE | 2023-10-17 12:23 | P.PNIM_ITS ---
Subjective Subjective Date of Service: 10/17/23 Interval History: Being followed for pneumonia, complaining of lack of sleep 4 months, complaining of persistent shortness of breath unable to breathe, no fevers, no chills requiring 2 L of oxygen by nasal cannula finger oximetry 93%. Review of Systems All other system reviewed and negative Physical Exam 2 Vital Signs: Vital Signs: Last Vital Signs Temp 97.2 F 10/17/23 07:48 Pulse 88 10/17/23 07:48 Resp 18 10/17/23 07:48 BP 130/80 10/17/23 07:48 Pulse Ox 94 10/17/23 07:48 O2 Del Method Nasal Cannula 10/17/23 07:48 O2 Flow Rate 4 10/17/23 07:48 BMI result Body Mass Index 75.6 Const: Other: General awake alert x3 in no acute distress. Neck supple, no JVD. CVS regular rate rhythm, Respiratory lungs diminished, no respiratory distress, no wheeze, no rhonchi. Gastrointestinal abdomen soft, non tender, bowel sounds audible, no guarding , no rigidity. Extremities b/l pitting edema. Neuro non focal Skin no rash Psych appropriate affect Objective Data Active Medications Acetaminophen (Acetaminophen 325 Mg Tablet) 975 mg PO Q6H PRN PRN Reason: mild/modearate pain or headach Last Admin: 10/15/23 01:17 Dose: 975 mg Documented By: DELANEY Acetaminophen/Butalbital/Caffeine (Butalb/Acetamin/Caff 50/325/40 Tablet) 1 tab PO Q4H PRN PRN Reason: Headache Last Admin: 10/17/23 09:01 Dose: 1 tab Documented By: SUZIE Albuterol/Ipratropium (Albuterol/Iprat 2.5/0.5mg 3 Ml Ampul.Neb) 3 ml INHALE Q4H PRN PRN Reason: Wheezing Last Admin: 10/16/23 14:27 Dose: 3 ml Documented By: SHERRY Amlodipine Besylate (Amlodipine Besylate 5 Mg Tablet) 5 mg PO BEDTIME [facility]; Protocol Last Admin: 10/16/23 19:38 Dose: 5 mg Documented By: ARIC Enoxaparin Sodium (Enoxaparin Sodium 40 Mg/0.4 Ml Syringe) 40 mg SUBCUT Q24H [facility] Last Admin: 10/16/23 17:13 Dose: 40 mg Documented By: ARTEMIO Guaifenesin/Codeine Phosphate (Guaifen/Codeine Sf 200/20/10ml 10 Ml Liquid) 10 ml PO Q4H PRN PRN Reason: Cough Last Admin: 10/17/23 04:48 Dose: 10 ml Documented By: ALISA Guaifenesin/Dextromethorphan (Guaifenesin Dm 200/20/10 Ml 10 Ml Syrup) 10 ml PO TID [facility] Last Admin: 10/17/23 08:35 Dose: 10 ml Documented By: SUZIE Ceftriaxone Sodium 1 gm/ (Sodium Chloride) 50 mls @ 100 mls/hr IV Q24H [facility] Last Infusion: 10/16/23 15:40 Dose: Infused Documented By: ARTEMIO Azithromycin 500 mg/ Sodium (Chloride) 250 mls @ 125 mls/hr IV Q24H [facility] Last Infusion: 10/16/23 18:13 Dose: Infused Documented By: ARTEMIO Ondansetron HCl (Ondansetron Hcl 4 Mg/2 Ml Vial) 4 mg IVPUSH Q8H PRN PRN Reason: Nausea and Vomiting Oxycodone HCl (Oxycodone Hcl Immed Release 5 Mg Tablet) 5 mg PO Q6H PRN PRN Reason: Pain, Severe (Pain Scale 7-10) Last Admin: 10/17/23 01:13 Dose: 5 mg Documented By: ALISA Sodium Chloride (0.9 % Sodium Chloride Flush 3 Ml Syringe) 3 ml IVFLUSH QSHIFT [facility] Last Admin: 10/17/23 08:36 Dose: 3 ml Documented By: SUZIE Labs 10/14/23 06:43 10/14/23 06:43 Assessment and Plan (1) Mild intermittent asthma: Status: Acute (2) Bilateral edema of lower extremity: Status: Acute (3) Pneumonia: Status: Acute (4) Sepsis: Status: Acute (5) Extreme obesity: Status: Acute Plan 32-year-old female with known history of mild intermittent asthma off inhalers presents with 1 month of worsening shortness of breath that has acutely worsened over the last week. She states she is unable to lay flat in bed in her leg swelling has increased. She also describes sick contacts at home. Workup consistent from bronchial pneumonia 1. Sepsis secondary to multifocal bronchial pneumonia. -sepsis resolved -on iv ceftriaxone/azithromycin d4, Blood cultures no growth -continue O2 support titrate as tolerated -DuoNebs q.4 hours while awake as needed -2D echo showed hyperdynamic left ventricular function EF greater than 70, normal diastolic function, no evidence of regional wall motion abnormality, moderately increased left ventricular wall thickness,l Hyperdynamic state -repeat CTA of chest showed no PE, but showed multi focal pneumonia with slight interval worsening, stable pericardial cyst. -as per patient history of sleep apnea was given 3 day trial of CPAP patient was unable to tolerate, likely symptoms related to obesity hypoventilation syndrome Cardiology consult obtained they recommend low-dose diuretics due to leg edema and mild increased JVD, and felt that hyperdynamic state could be related to infection, patient does not have significant anemia will check TSH Seen by pulmonology Dr. Oates recommend overnight sleep study 2. Mild intermittent asthma exacerbation secondary to pneumonia. - resolved, continue updraft as needed, cough medication and azithromycin. 3.Bilateral edema lower extremities -no evidence of CHF, likely venous insufficiency , sleep apnea, recommend weight reduction 4. History of gestational diabetes with hyperglycemia on arrival - stable blood sugars, will discontinue lispro correctional scale -A1c 5.7 5. Morbid obesity counseling done, recommend low-calorie diet and weight reduction Full code Lovenox Patient will require continued inpatient for IV antibiotics to treat sepsis secondary to bronchial pneumonia, hypoxia and requiring further workup. Quality Stroke Does the patient have a stroke diagnosis?: No VTE Prior VTE?: No VTE Risk Level:: Medical - moderate - high VTE Device Contraindication: Treatment Not Indicated VTE Drug Contraindication: N/A - Med Ordered
[2023-10-17 12:58] VITALS: BP 119/68
[2023-10-17] MEDS: Furosemide 40 MG TABLET PO (12:58)
[2023-10-17 13:07] VITALS: O2SAT 92
--- NOTE | 2023-10-17 14:21 | MHC.CM.PN ---
Per MD rounds no discharge today. Patient dx PNA, requires IV ABX and further work up. DP Home self care. S.O. will provide transport home at discharge.
[2023-10-17] MEDS: Enoxaparin Sodium 40 MG/0.4 ML SYRINGE SUBCUT (15:08)
[2023-10-17] MEDS: cefTRIAXone sodium 1 GM in 0.9 % Sodium Chloride 50 ML IV (15:09)
--- NOTE | 2023-10-17 15:11 | P.CONPL_ITS ---
History of Present Illness History of Present Illness Consult date: 10/17/23 Chief complaint: Pneumonia, orthopnea Narrative: 32-year-old lady with underlying history of morbid obesity, asthma, anxiety, depression, likely GENE/ohs and fluid retention admitted on 10/13/2023 with dyspnea and hypoxia requiring 2 L of supplemental oxygen to maintain normal oximetry and treated for ?pneumonia with empiric anti CCP antibiotics with no significant changes. Patient states that she had prior CPAP trial for 3 days, but was not able to tolerated at that time. Review of Systems 2 Constitutional: Constitutional: Reports daytime sleepiness, Denies excessive sweating, Reports fatigue, Denies fever(s), Reports lethargy, Reports malaise, Denies night sweats, Reports snoring and Denies weight loss Eyes: Eyes: Denies blurry vision and Denies itchy eyes ENT: Denies nasal congestion, Denies post nasal drip, Denies sinus pain, Denies sinus pressure and Denies other ( Thrush) Cardiovascular: Cardiovascular: Denies chest pain, Reports pedal edema, Reports dyspnea, Reports orthopnea and Reports paroxysmal nocturnal dyspnea Respiratory: Respiratory: Denies cough, Denies hemoptysis, Denies excessive phlegm production, Reports dyspnea, Reports snoring and Denies wheezing Gastrointestinal: Gastrointestinal: Denies abdominal pain and Denies heartburn Musculoskeletal: Musculoskeletal: Denies myalgias, Denies arthralgias and Denies joint swelling Integumentary/Breasts: Skin/Breast: Denies rash Neurologic: Denies memory loss and Denies seizure-like activity Psychiatric: Psychiatric: Denies abnormal sleep pattern, Denies anxiety and Denies memory loss Endocrine: Endocrine: Denies excessive sweating, Reports fatigue and Denies heat intolerance Hematologic/Lymphatic: Hematologic/Lymphatic: Denies easy bruising Allergic/Immunologic: Allergic/Immunologic: Denies itchy eyes, Denies seasonal rhinorrhea and Denies wheezing PMFSH Past Medical History Medical History (Updated 10/17/23 @ 15:15 by Chester Oates MD) Extreme obesity Missed menses Back pain Obesity History of gestational diabetes Anxiety and depression Mild intermittent asthma Family History Family History Mother Asthma Breast cancer Surgical History Surgical History Hx of section Social History Social History Household Members: Spouse Housing: House Do you presently have visiting nurse or other home services: No Alcohol intake: never Patient Tobacco Use Status: Never used Tobacco Second Hand Smoke Exposure: No service: No Sexual orientation: Straight/Heterosexual Gender identity: Female Meds Allergies Allergy/AdvReac Type Severity Reaction Status Date / Time vancomycin [VANCOMYCIN] Allergy Mild ITCHING Verified 10/13/23 14:08 penicillin V Allergy Unknown rash Verified 10/13/23 14:08 Penicillins [PENICILLINS] Allergy Unknown HIVES Verified 10/13/23 14:08 Active Medications: Current Medications Acetaminophen (Acetaminophen 325 Mg Tablet) 975 mg PO Q6H PRN PRN Reason: mild/modearate pain or headach Last Admin: 10/15/23 01:17 Dose: 975 mg Acetaminophen/Butalbital/Caffeine (Butalb/Acetamin/Caff 50/325/40 Tablet) 1 tab PO Q4H PRN PRN Reason: Headache Last Admin: 10/17/23 13:04 Dose: 1 tab Albuterol/Ipratropium (Albuterol/Iprat 2.5/0.5mg 3 Ml Ampul.Neb) 3 ml INHALE Q4H PRN PRN Reason: Wheezing Last Admin: 10/16/23 14:27 Dose: 3 ml Amlodipine Besylate (Amlodipine Besylate 5 Mg Tablet) 5 mg PO BEDTIME MACHO; Protocol Last Admin: 10/16/23 19:38 Dose: 5 mg Enoxaparin Sodium (Enoxaparin Sodium 40 Mg/0.4 Ml Syringe) 40 mg SUBCUT Q24H MACHO Last Admin: 10/17/23 15:08 Dose: 40 mg Furosemide (Furosemide 40 Mg Tablet) 40 mg PO DAILY MACHO; Protocol Last Admin: 10/17/23 12:58 Dose: 40 mg Guaifenesin/Codeine Phosphate (Guaifen/Codeine Sf 200/20/10ml 10 Ml Liquid) 10 ml PO Q4H PRN PRN Reason: Cough Last Admin: 10/17/23 13:04 Dose: 10 ml Guaifenesin/Dextromethorphan (Guaifenesin Dm 200/20/10 Ml 10 Ml Syrup) 10 ml PO TID MACHO Last Admin: 10/17/23 15:08 Dose: 10 ml Ceftriaxone Sodium 1 gm/ (Sodium Chloride) 50 mls @ 100 mls/hr IV Q24H [facility] Last Admin: 10/17/23 15:09 Dose: 100 mls/hr Azithromycin 500 mg/ Sodium (Chloride) 250 mls @ 125 mls/hr IV Q24H [facility] Last Infusion: 10/16/23 18:13 Dose: Infused Ondansetron HCl (Ondansetron Hcl 4 Mg/2 Ml Vial) 4 mg IVPUSH Q8H PRN PRN Reason: Nausea and Vomiting Oxycodone HCl (Oxycodone Hcl Immed Release 5 Mg Tablet) 5 mg PO Q6H PRN PRN Reason: Pain, Severe (Pain Scale 7-10) Last Admin: 10/17/23 15:08 Dose: 5 mg Sodium Chloride (0.9 % Sodium Chloride Flush 3 Ml Syringe) [facility] Last Admin: 10/17/23 15:08 Dose: 3 ml Home Medications ?Medication ?Instructions ?Recorded ?Confirmed ?Last Taken ?Type cyanocobalamin (vitamin B-12) 1,000 mcg PO DAILY 10/13/23 10/13/23 4 Days Ago History 1,000 mcg tablet ~10/09/23 Physical Exam 2 Vital Signs: Vital Signs: Last Vital Signs Temp 97.2 F 10/17/23 07:48 Pulse 88 10/17/23 07:48 Resp 18 10/17/23 07:48 BP 119/68 10/17/23 12:58 Pulse Ox 92 10/17/23 13:07 O2 Del Method Nasal Cannula 10/17/23 13:07 O2 Flow Rate 2 10/17/23 13:07 BMI result Body Mass Index 75.6 Const: General: no acute distress and alert Nutritional Appearance: obese Orientation/consciousness: Other orientation findings ( oriented) HEENT: Head: Yes atraumatic Eyes: General: appearance normal, both eyes and all related structures S clerae: sclerae normal EOM: EOMs intact bilaterally Neck: Neck: Yes supple Lymphatic: no lymphadenopathy noted Resp: Effort & Inspection: normal respiratory effort and no use of accessory muscles Auscultation: clear to auscultation bilaterally Cardio: Rate: regular rate Rhythm: regular rhythm Heart sounds: no gallops, no murmurs and no rubs Skin: General skin exam: other ( warm) Extrem: General: No clubbing, No cyanosis and Yes edema (1+ bilateral) Results Laboratory Findings 10/14/23 06:43 10/14/23 06:43 ABG, PT/INR, D-dimer: PT/INR, D-dimer PT 13.3 SEC (11.1-13.3) 10/13/23 14:37 INR 1.1 (0.9-1.1) 10/13/23 14:37 Abnormal lab findings: Abnormal Labs 10/13/23 10/14/23 14:37 06:43 WBC 11.1 H RBC 4.00 L 3.85 L Hgb 11.5 L Hct 35.7 L 35.2 L MPV 9.1 L Immature Gran % (Auto) 1.2 H 1.2 H Neut % (Auto) 85.2 H 79.5 H Lymph % (Auto) 5.2 L 9.0 L Lymph # (Auto) 0.6 L 0.7 L Abs Immat Gran (auto) 0.13 H 0.09 H Absolute Neuts (auto) 9.5 H Random Glucose 127 H 117 H Total Bilirubin 1.1 H B-Natriuretic Peptide 266 H Microbiology: Microbiology 10/13/23 15:49 Blood - Venous Blood Culture - Preliminary No growth after 48 hours. 10/13/23 15:41 Blood - Venous Blood Culture - Preliminary No growth after 48 hours. Assessment and Plan (1) Acute respiratory failure with hypoxia: Status: Acute (2) GENE (obstructive sleep apnea): Status: Acute (3) Obesity hypoventilation syndrome: Status: Acute (4) Pulmonary edema: Status: Acute Plan Impression: 32-year-old lady with underlying morbid obesity admitted with acute hypoxic respiratory failure initially deemed to be secondary to community- acquired pneumonia, though appears to have pulmonary edema. Recommendations: IV diuresis, overnight sleep study, nocturnal CPAP at 15 cm of water and 28%. Procedures Date of Service Date of Service: 10/17/23
[2023-10-17] MEDS: Azithromycin 500 MG in 0.9 % Sodium Chloride 250 ML 125 MG IV (15:14)
[2023-10-17 15:21] VITALS: BP 120/65; PULSE 83; RESP 20; TEMP 36.1; O2SAT 96
[2023-10-17 19:21] VITALS: BP 116/67; PULSE 89; RESP 20; TEMP 36.1; O2SAT 96
[2023-10-17 20:24] VITALS: BP 116/67
[2023-10-17] MEDS: amLODIPine Besylate 5 MG TABLET PO (20:24)
[2023-10-18] VITALS: BP 118/68; PULSE 78; RESP 20; TEMP 36.4; O2SAT 96
[2023-10-18] MEDS: oxyCODONE HCl Immed Release 5 MG TABLET PO (04:20)
[2023-10-18] MEDS: guaiFEN/Codeine SF 200/20/10ML 10 ML LIQUID PO (04:24)
[2023-10-18 04:39] VITALS: PULSE 79; RESP 12; O2SAT 95
[2023-10-18] MEDS: Albuterol/Iprat 2.5/0.5MG 3 ML AMPUL.NEB INHALE (04:39)
[2023-10-18 06:22] LABS: Anion Gap 15 (12-20); Blood Urea Nitrogen 9 mg/dL (9-16); Calcium 8.6 mg/dL (8.4-10.2); Carbon Dioxide 26 mmol/L (22-29); Chloride 101 mmol/L (96-108); Creatinine Clr Calc Pharmacy 148.3; Estimated Glomerular Filt Rate > 60; Glucose Random 117 mg/dL (60-115); Potassium 3.3 mmol/L (3.3-5.1); Sodium 139 mmol/L (135-145)
[2023-10-18 06:39] LABS: Thyroid Stimulating Hormone 3.45 uIU/mL (0.32-4.0)
[2023-10-18 07:44] VITALS: BP 109/58; PULSE 83; RESP 18; TEMP 36.7; O2SAT 96
[2023-10-18 08:25] VITALS: BP 109/58
[2023-10-18] MEDS: guaiFENesin DM 200/20/10 ML 10 ML SYRUP PO (08:25)
[2023-10-18] MEDS: Butalb/Acetamin/Caff 50/325/40 TABLET 1 TAB PO ×2 (08:25→12:29)
[2023-10-18] MEDS: Furosemide 40 MG TABLET PO (08:25)
[2023-10-18] MEDS: 0.9 % Sodium Chloride Flush 3 ML SYRINGE IVFLUSH (08:26)
[2023-10-18 10:42] VITALS: PULSE 102; PULSE 112; O2SAT 92; O2SAT 94
--- NOTE | 2023-10-18 12:39 | PM.DS ---
DS: Providers Provider Date of Service: 10/18/23 Date of admission: 10/13/23 17:06 Primary care physician: Pati Abad MD Consults: 10/16/23 13:34 Consult to Cardiology Routine Consulting Provider: [facility] [place] [facility] [place] [facility] Reason for consultation: sob/hyperdynamic output Has provider been notified: No 10/16/23 18:14 Consult to Pulmonology Routine Consulting Provider: [facility] [place] [facility] [place] [facility] Reason for consultation: hypoxia/sob likely obesity hypoventilation Has provider been notified: No DS: Diagnosis Discharge Diagnosis (1) Acute respiratory failure with hypoxia: Status: Acute (2) GENE (obstructive sleep apnea): Status: Acute (3) Obesity hypoventilation syndrome: Status: Acute (4) Pulmonary edema: Status: Acute DS: Summary Hospital Course Hospital Course: History of presenting illness: Date of Service: 10/13/23 Chief Complaint: Shortness of breaths [age] to old female with a history of morbid obesity BMI 75, mild intermittent asthma, anxiety, depression who reports worsening shortness of breath over the last 1 month. She said over the last week symptoms became markedly worse with her inability to lie flat in bed or walk any distance without being short of breath. She currently takes no inhalers for her asthma. Denies diabetes but states she had gestational diabetes with 2 of her children. She is a nonsmoker. She does describe wheezing. Workup in the emergency room including CTA of the chest failed to demonstrate pulmonary emboli however demonstrated multifocal bronchopneumonia involving all lobes most pronounced in the posterior left upper and basal left lower lobes. She was given ceftriaxone and azithromycin and admission was requested. Hospital course: Sepsis due to bronchopneumonia 32-year-old female with known history of mild intermittent asthma off inhalers presents with 1 month of worsening shortness of breath that has acutely worsened over the last week, associated with bilateral leg swelling, CTA chest showed multifocal bronchopneumonia, patient admitted to medical floor with a diagnosis of sepsis due to pneumonia, treated with IV ceftriaxone and azithromycin, blood culture showed no growth, a 2D echo showed hyperdynamic left ventricular function with EF greater than 70, normal diastolic function, no evidence of regional wall motion abnormality and moderately increased left ventricular wall thickness, and stable hematocrit hyperdynamic state likely due to infection, patient noted to have bilateral lower extremity edema likely due to fluid overload, treated with Lasix with good affect, as per patient she was diagnosed to have sleep apnea but was unable to tolerate CPAP trial, therefore returned, she never went back for follow-up, she was evaluated by certified appliance service technician and underwent overnight sleep study report is pending, since patient is hemodynamically stable, and did not qualify for home oxygen, oxygenation remains stable 92% with ambulation, she is being discharged home to finish a total 7 day course of antibiotic, she has been strongly advised to limit fluid and salt intake, according to patient she drinks high volumes of water and eat chips, and canned sausages, she declined nutrition consult, patient admits to have chronic insomnia since young age, and it seems not related to shortness of breath or orthopnea, she has been advised outpatient pulmonology follow-up with Dr. Garner to obtain result of sleep study. Mild intermittent asthma exacerbation secondary to pneumonia resolved. History of gestational diabetes with hyperglycemia on arrival, elevated blood sugars were likely secondary to use of steroids, hemoglobin A1c is 5.7 strongly recommend low-carbohydrate diet. Morbid obesity counseling done, recommend low-calorie diet and weight reduction, patient is not very receptive, does not ambulate due to chronic back pain, admits to be mostly sitting on couch watching Netflix since COVID Recommend follow-up with primary care physician for chronic lower back pain, will likely benefit from physical therapy. Time Attestation Discharge Coordination Time (in mins): 38 Quality: Safe Use of Opioids Does Pt have an Active Cancer Diagnosis on the Problem List?: No Quality: Stroke Does the patient have a stroke diagnosis?: No Physical Exam Vital Signs: Vital Signs: Last Vital Signs Temp 98.0 F 10/18/23 07:44 Pulse 83 10/18/23 07:44 Resp 18 10/18/23 07:44 BP 109/58 L 10/18/23 08:25 Pulse Ox 96 10/18/23 07:44 O2 Del Method Nasal Cannula 10/18/23 07:44 O2 Flow Rate 2 10/18/23 07:44 BMI result Body Mass Index 75.6 Const: Other: General awake alert x3 in no acute distress. Neck supple, no JVD. CVS regular rate rhythm, Respiratory lungs diminished, no respiratory distress, no wheeze, no rhonchi. Gastrointestinal abdomen soft, non tender, bowel sounds audible, no guarding , no rigidity. Extremities mild b/l pitting edema,improved. Neuro non focal Skin no rash Psych appropriate affect DS: Data Data Completed and Pending Labs on day of discharge: Laboratory Results - last 24 hr 10/18/23 05:34 Sodium 139 Potassium 3.3 Chloride 101 Carbon Dioxide 26 Anion Gap 15 BUN 9 Creatinine 0.87 Estim Creat Clear Calc 148.3 Estimated GFR > 60 Random Glucose 117 H Calcium 8.6 TSH 3.45 Preliminary micro results at discharge 10/13/23 15:49 Blood Culture - Preliminary Blood - Venous No growth after 48 hours. 10/13/23 15:41 Blood Culture - Preliminary Blood - Venous No growth after 48 hours. Discharge Plan Discharge Anticipated Discharge Date/Time: 10/18/23 10:54 Patient Disposition: Home, Self-Care Discharge Diagnosis: Multifocal pneumonia Sepsis Referrals: Pati Marlow MD [Primary Care Provider] - 1 Week Discharge Medications: New cefuroxime axetil 500 mg tablet 500 mg PO BID Qty: 4 0RF Continued cyanocobalamin (vitamin B-12) 1,000 mcg tablet 1,000 mcg PO DAILY Discharge Orders: Discharge Order (Routine); Ordered 10/18/23 Ordered By: Med Willams Diet: low calore Activity on Discharge: As tolerated Stand Alone Forms: Patient Portal Discharge page Print Language: Citizen Of [place] Care Plan Goals: Sepsis resolved Acute hypoxia resolved Lower extremity edema recommend low-salt diet/limit fluid intake to 8-10 cups (250ml or 8 0z cups) a day Take by mouth antibiotic as prescribed Recommend MRI chest with and without contrast in 3 months to follow-up on well-circumscribed fat attenuation structure measuring 4.8 cm in the left upper mediastinum may represent thymic rebound Health Concerns: strongly recommend to follow low-calorie diet, ambulate daily Plan of Treatment: Outpatient follow-up with primary care physician call for appointment Outpatient follow-up with certified appliance service technician Dr. Garner call for appointment to obtain report of overnight sleep study Assessment: As above Discharge Date/Time: 10/18/23 15:01
[2023-10-18] MEDS: Potassium Chloride ER 20 MEQ TAB.ER.PRT PO (13:03)
--- NOTE | 2023-10-18 14:56 | MHC.CM.PN ---
pt dcd home self care
== END 2023-10-18 15:01 | disposition home or self-care (01) | DRG 720 ==
LOC: HO.ED 15:19 → HO.EDOVER 17:07 → HO.IMC 19:27 → HO.S3 10-14 13:01
PROVIDERS: Nurse Practitioner Family; Physician Assistant; Admitting Provider Hospitalist; Emergency Provider Emergency Medicine; PCP Internal Medicine; Visit Provider Hospitalist
DX: A41.9 Sepsis, unspecified organism (principal); J18.0 Bronchopneumonia, unspecified organism; J45.21 Mild intermittent asthma with (acute) exacerbation; Z68.45 Body mass index [BMI] 70 or greater, adult; E66.2 Morbid (severe) obesity with alveolar hypoventilation; Z71.3 Dietary counseling and surveillance; I87.2 Venous insufficiency (chronic) (peripheral); R73.9 Hyperglycemia, unspecified; Z20.822 Contact with and (suspected) exposure to COVID-19; Z79.899 Other long term (current) drug therapy
CPT/HCPCS: 0241U; 36415; 71046; 71275; 80048; 80053; 82947; 83036; 83605; 83880; 84443; 85025; 85610; 87040; 93005; 93306; 94640; 99285; J0456; J0696; J1650; J1885; J1940; Q9957; Q9967

== ENCOUNTER → 2023-10-13 14:05 | Outpatient (BNV) | payer OTHER, SELFPAY | PROVIDERS: Admitting Provider Hospitalist; Emergency Provider Emergency Medicine; PCP Internal Medicine; Visit Provider Internal Medicine | DX: R00.0 Tachycardia, unspecified (principal) | CPT/HCPCS: 93010 ==

== ENCOUNTER 2023-10-13 17:06 | Outpatient (BNV) | payer OTHER, SELFPAY | END 2023-10-15 07:00 | PROVIDERS: Admitting Provider Hospitalist; Emergency Provider Emergency Medicine; PCP Internal Medicine; Visit Provider Internal Medicine Cardiovascular Disease | DX: I51.89 Other ill-defined heart diseases (principal) | CPT/HCPCS: 93306 ==

== ENCOUNTER → 2023-10-13 17:06 | Outpatient (BNV) | payer OTHER, SELFPAY | PROVIDERS: Admitting Provider Hospitalist; Emergency Provider Emergency Medicine; PCP Internal Medicine; Visit Provider Internal Medicine Pulmonary Disease | DX: J96.01 Acute respiratory failure with hypoxia (principal); G47.33 Obstructive sleep apnea (adult) (pediatric); J81.1 Chronic pulmonary edema | CPT/HCPCS: 99222 ==

== ENCOUNTER → 2023-10-13 17:06 | Outpatient (BNV) | payer OTHER, SELFPAY | PROVIDERS: Admitting Provider Hospitalist; Emergency Provider Emergency Medicine; PCP Internal Medicine; Visit Provider Hospitalist | DX: J96.01 Acute respiratory failure with hypoxia (principal); E66.2 Morbid (severe) obesity with alveolar hypoventilation; J81.1 Chronic pulmonary edema | CPT/HCPCS: 99223; 99232; 99233; 99239 ==

== ENCOUNTER → 2023-10-13 17:06 | Outpatient (BNV) | payer OTHER, SELFPAY | PROVIDERS: Admitting Provider Hospitalist; Emergency Provider Emergency Medicine; PCP Internal Medicine; Visit Provider Internal Medicine Cardiovascular Disease | DX: J18.9 Pneumonia, unspecified organism (principal); R60.0 Localized edema | CPT/HCPCS: 99223 ==